=== PATIENT | male | born 1940 | race Caucasian/White ===

== ENCOUNTER 2024-08-23 08:40 | Inpatient (IN) | payer MEDICARE, BC, SELFPAY ==
[2024-08-23] VITALS (67 sets, daily range): BP systolic 103–168; BP diastolic 56–122; BMI 30.1; BMI 29.4
--- NOTE | 2024-08-23 07:25 | ED.CVA ---
History of Present Illness
General
Chief Complaint: CVA/TIA Symptoms
Source: patient and ambulance crew
Exam Limitations: none
Time Seen by Provider: 08/23/24 07:22
Nursing documentation reviewed up to this point in time: agreed with
Onset of Stroke Symptoms
Onset of symptoms known: No
Time pt last seen normal is known: No
History of Present Illness
History of Present Illness:
84-year-old male prehospital stroke alert woke up at 5 AM spouse noted slurred speech and right facial weakness he got up through the night to urinate he does not know what time states he felt fine at that time, apparently his had a week of trouble
swallowing but no speech or facial weakness
Past History
Past History
ED Past Medical History: HTN, GA (4 years ago s/p balloon) and Other (HLD, arthritis, scoliosis, pre-DM)
Patient has exhibited threatening behavior?: No
Social History
Tobacco: Non-smoker
Alcohol: None
Drug: None
Personal:
Living: with family
Employment: Employed
Family History
Family History: Other (FH of leg pain in mother and sister)
Review of Systems
Review of Systems
All Other Systems: Not applicable
EENT: Reports other (Trouble swallowing)
Neurological: Reports weakness and other (Slurred speech trouble swallowing)
Phy Exam
Physical Exam
Physical Exam:
Physical Exam
General: no apparent distress, not acutely ill
Neck: No tongue bite
Heart: Irregular
Lungs: no acute respiratory distress. clear bilaterally
Abdomen: normal bowel sounds. not tender. no CVAT
Neuro: alert and oriented. Expressive aphasia right facial weakness mild right upper extremity with
Skin: no rash
Psychiatric: well kept. interactive and cooperative
Extremities: no edema.
Course
Orders/Labs/Results
Orders:
Orders
08/23/24 Breakfast
NPO
Allow oral meds: No
Allow clear liquids: No
08/23/24 07:22
Electrocardiogram (*1) Urgent
Reason for Study: TIA/Stroke
CT BRAIN PERF STROKE ALERT Urgent
Comment:
Reason For Exam: Aphasia facial palsy right arm weakness
CT HEAD STROKE ALERT W/o Cont Urgent
Comment:
Reason For Exam: Aphasia facial palsy right arm
CT HEAD/NECK ANG STROKE ALERT Urgent
Comment:
Reason For Exam: Aphasia facial palsy right arm weakness
Bedside Glucose- Treatment ONCE
Cardiac Monitoring- Treatment ONCE
08/23/24 07:23
EKG- Treatment ONCE
08/23/24 07:26
Complete Blood Count/With Diff Urgent
Erythrocyte Sed Rate Urgent
PTT Urgent
Prothrombin Time Urgent
08/23/24 07:50
Comprehensive Metabolic Panel Stat
08/23/24 08:08
Tenecteplase [Tnkase] 24 mg Syringe [Syringe Non-Pump] 0 ml IV NOW
Provider explained risk/benefits to patient &/or caregiver?: Yes
Blood pressure: 140/79
Tenecteplase [Tnkase] 24 mg Syringe [Syringe Non-Pump] 0 ml IV NOW
Provider explained risk/benefits to patient &/or caregiver?: Yes
Blood pressure: 140/79
08/23/24 08:13
Admit Patient As Directed
Co-Sign Provider:
Level of Care: Inpatient admission
Assign to:: ICU
Physician / Group: hospitalist-Jen
Diagnosis: CVA TNK
Reason for Hospitalization: ICU, TNK
Expected length of stay greater than two midnights?: Yes
ELOS- Estimated Length of Stay in days: 3
I certify the patient meets the requirements for IP care: Yes
Sequential Compression Device [Pneumatic Compression Sleeves] As Directed
Type: Knee high
08/23/24 08:14
PRN Pain Medication Management As Directed
May give lesser potent ordered pain med per pt: Yes
preference::
Protocol:: Medication orders for pain may be administered in a
manner that supports deferring to patient preference
when the pt is:
- Requesting an ordered lesser potent pain medication.
Least to most potent pain medications are defined
as: acetaminophen < NSAID < tramadol < opioids
(morphine, oxycodone, hydromorphone).
- Requesting a lesser dose of the same medication IF
ORDERED.
- Requesting a less intrusive route of administration
if both routes are prescribed by the provider (PO <
IV).
DX Deep Vein Thrombosis Video Routine
Abnormal Lab Results
08/23/24 08/23/24
: 07:30
MCHC 32.5 L g/dL
(33.0-37.0)
Absolute Monos (auto) 0.7 H 10^3/uL
(0.1-0.6)
Lymphocytes % 19.7 L %
(20.5-51.1)
POC Glucose 169 H mg/dl
(70-99)
08/23/24 07:26
Vital Signs
Initial and Last Documented VS:
Initial Vital Signs
BP
140/79
08/23/24 07:23
Last Documented Vital Signs
Temp Pulse Resp BP Pulse Ox
98.1 F 83 20 103/88 95
08/23/24 07:36 08/23/24 08:16 08/23/24 08:16 08/23/24 08:16 08/23/24 07:53
MDM/Problems Addressed
Differential Diagnosis Includes:
TIA CVA mass seizure with Ricco's paralysis, other neurologic issue as he is had trouble swallowing for a week
MDM/Problems Addressed:
Slurred speech
Chronic conditions affecting care:
Lipids blood pressure
Acute Exacerbation and/or Progression of Chronic Illness:
Lipids blood pressure
*Radiology
Radiology exam reviewed: radiology read reviewed
*Pulse Oximetry
Patient hypoxic: no
*EKG
Interpreted by ED Provider?: Yes
Interpretation: abnormal
Comparison EKG: no comparison EKG present
Rate: normal
Rhythm: a-fib
Ischemia: no ischemia
*Hostel Parent Interpretation
Rate: normal
Interpretation: normal
Heart Rate: 78
Rhythm: a-fib
*Critical Care Note
Total Time (30-74mins, 75-104mins- exclusive of procedures): 30
Update Note
Update Note:
8:10 AM update patient was sputtering symptoms of mixed aphasia, new-onset A-fib, rate controlled, not anticoagulated, no recent surgery, risk benefits reviewed with patient and spouse will proceed lytic therapy
ED Attending Note
-
Portions of this chart may have been created with voice recognition software.� Occasional wrong word or��sound alike� substitutions may have occurred due to the inherent limitations of voice recognition software.
Discharge Plan
Departure
Patient Disposition: Admit
Date of Disposition: 08/23/24
Time of Disposition: 08:23
Admit to: ICU
Presentation/result/management discussed w/ accepting MD/DO: Hospitalist
Patient with high blood pressure during this ER visit?: No
Condition: Fair
Discharge Problem:
Acute CVA (cerebrovascular accident), Atrial fibrillation
Prescriptions:
No Action
atorvastatin 40 MG tablet
40 mg PO HS
acetaminophen 325 MG tablet
650 mg PO Q4HPRN PRN (Reason: fever>100.4F, mild pain) 0RF
carvedilol 6.25 MG tablet
6.25 mg PO BID 0RF
pantoprazole 40 MG tablet,delayed release (DR/EC)
40 mg PO BID 0RF
furosemide 20 MG tablet
20 mg PO DAILY 0RF
cholecalciferol (vitamin D3) 2,000 UNITS tablet
2,000 units PO DAILY 0RF
docusate sodium 100 MG capsule
100 mg PO BID Qty: 60 0RF
lisinopril 2.5 MG tablet
2.5 mg PO DAILY Qty: 30 0RF
ferrous sulfate [Iron (ferrous sulfate)] 325 MG tablet
325 mg PO DAILY Qty: 60 0RF
Interventions
Interventions:
*Risk Screen - Suicide Last Done: 08/23/24 07:41
*General Assessment Last Done: 08/23/24 07:40
*Neglect/Abuse Screening Last Done: 08/23/24 07:41
*ED- Fall Risk Assessment Last Done: 08/23/24 07:41
*ED COVID-19 Vaccine History Last Done: 08/23/24 07:41
ED- Cardiac Assessment Last Done: 08/23/24 08:05
ED- Neurological Assessment Last Done: 08/23/24 07:51
ED- Pulmonary Assessment Last Done: 08/23/24 07:53
ED Swallowing Screen Last Done: 08/23/24 08:05
Discharge Date and Time
Print Language: MALAY
[2024-08-23 07:36] LABS: Glucose - Point of Care 169 mg/dl (70-99)
[2024-08-23 07:52] LABS: Hematocrit 45.6 % (39.0-52.0); Hemoglobin 14.8 g/dL (13.0-18.0); Mean Corp Hgb Conc. 32.5 g/dL (33.0-37.0); Mean Corpuscular Volume 93.4 fL (80.0-94.0); Nucleated Red Blood Cells % 0 % (-); Platelet Count 207 10^3/uL (130-400); Red Cell Dist. Width 12.6 % (11.5-14.5)
--- NOTE | 2024-08-23 08:09 | CON.NEURO4 ---
Addendum entered and electronically signed by Ranjit Armstrong MD 08/23/24 11:21:
Total Critical Care Time= 40 minutes.
The neurological system is affected and the action required by me to prevent further deterioration or potential was control over the item listed first in the Impressions and Recommendations section of this note.
I was present and personally examined the patient. I discussed patient care with other professional health care providers.
Also discussed with family.
Addendum entered and electronically signed by Ranjit Armstrong MD 08/23/24 11:20:
Studies reviewed.
I have personally examined the patient. I reviewed and agree with the CNC MACHINIST's Note.
My addenda:
Awake, alert, interactive. No acute distress.
Speech with difficulty with repetitive phrases.
Follows 2-step requests w/o difficulty. No tremor.
Extra-ocular movements grossly intact.
Facial movements full and symmetric. Hearing intact to normal conversational volume.
Normal UE movements bilaterally.
Neck: full ROM.
Chest: no dyspnea
Heart: no JVD
Ext: (-) Clubbing, (-) Cyanosis, (-) Edema
IMPRESSIONS/RECOMMENDATIONS:
Abrupt onset of aphasia with right-sided facial droop in a patient with prior pulmonary emboli
And newly discovered atrial fibrillation
Patient had episodic aphasia during examination suggesting other TIA or stuttering stroke. Patient may have underlying cognitive disorder as well based on inability to correctly recall own medical history
Patient was provided with tenecteplase due to high risk for worsening stroke
Would suggest cardiology evaluation due to new onset atrial fibrillation and concern regarding initiation of anticoagulation 24 hours after tenecteplase provision
Consider GI evaluation or curbside due to prior history of hemorrhage
Patient will likely require GI evaluation also due to self stated dysphagia beginning approximately 2 weeks ago
Check acetylcholine receptor antibodies due to dysphagia
Permissive hypertension up to 220/120
Check blood work for potential metabolic abnormalities producing cognitive decline
D/W patient / family / nursing
All questions answered.
Will continue to follow patient.
Original Note:
Documented by User: Dalia Ornelas NP 08/23/24 10:52
Consultation - Neurology 4
-
CONSULTING PHYSICIAN: Ranjit Armstrong MD
REFERRING PHYSICIAN: ER/Dr. Corcoran
DICTATED BY: KURT Chappell
DATE/TIME OF REQUEST: 08/23/24
DATE/TIME OF CONSULTATION: 08/23/24
Reason for Consultation: Stroke Alert
History of Present Illness:
This is an 84-year-old right-handed male who has presented to the hospital with report of dysarthria and right facial drooping. In 2021, the patient experienced abdominal pain and was subsequently found to have a right kidney hematoma in addition
to a DVT in his LLE and bilateral upper extremities; VQ scan was high probability for pulmonary emboli. IVC filter was placed at that time due to the hematoma, but he proceeded to have a GI bleed requiring blood transfusion following the procedure.
He underwent a hematology evaluation for hypercoagulability which was unremarkable. He has continued on aspirin 81mg every other day since that time.
Patient and his report that he went to bed last night (08/22/24) around 2130 in his usual state. He woke up around midnight to use the bathroom and reports being at his baseline but having a coughing fit. He proceeded to go back to bed until
0500. At 0500 his noticed that his speech sounded slurred and his right face appeared droopy. On arrival in the ER, CT head, CTA head/neck, and CT perfusion were obtained and are negative for any acute abnormalities. NIHSS is 2 for mild
dysarthria and right facial drooping. They report that his speech has improved significantly. He is newly found to be in Afib on cardiac monitoring. He reports having chest discomfort for the past week. He has had a chronic cough and urinary
urgency/incontinence for years. He also notes two weeks of swallowing difficulty, which his states he had not mentioned previously. he uses a cane for ambulation and endorses chronic balance issues. He denies any headache, dizziness, vision
changes, numbness, and weakness.
Past Medical History: HTN, HLD, CAD, NSTEMI, CKD, pulmonary embolism, DVT, upper GI bleed from duodenal ulcer, right renal capsular hematoma, spinal stenosis, arthritis
Surgical History: RCA PTCA, IVC filter, cardiac catheterization, tibia repair
Family History: Reviewed and noncontributory.
Social History: Occasional alcohol. Denies tobacco and illicit drug use.
Allergies: No known allergies.
Home Medications: See below.
Review of Symptoms:
Patient denies any fever, headache, chest pain, shortness of breath, GI or symptoms.
�Per the HPI.�All systems are reviewed negative except above.
Physical Exam:
The patient is afebrile, abdomen is nondistended, breathing is unlabored, skin is warm and dry, no edema.
NIH Stroke Scale:
I performed the NIH stroke scale on the patient on 08/23/24 at 0800. The patient scored 2 points on the NIH stroke scale assessment, which were assigned as follows: See below.
Neurologic Examination:
The patient is awake, alert and oriented x 3. Poor historian. Unable to state next holiday. He is able to follow commands and answer questions appropriately. There is no aphasia. There is mild dysarthria. On cranial nerve assessment, pupils are 3
mm bilateral, round and reactive to light and accommodation. Visual ulloa are full. Extraocular movements are intact. Facial sensations are intact and bilaterally symmetrical, there is right facial drooping. Hearing is intact bilaterally to
normal conversation volume. Tongue palate and uvula are midline. Sternocleidomastoid strengths are full bilaterally. Motor strengths are 5/5 bilateral upper and lower extremities on medical research [place] scale. There is no drift or involuntary
movement noted. There was no extinction noted on double simultaneous stimulation. Coordination is intact by finger to nose bilaterally.
Lab Results: See below.
Neuro Imaging:
1. CT Head 08/23/24: No acute intracranial abnormality. ASPECT score: 10.
2. CTA Head/Neck 08/23/24: No large vessel occlusions, dissections, or aneurysms appreciated. 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
Mild atherosclerotic disease within both carotid bulbs and proximal ICAs causing less than 50% luminal narrowing bilaterally.
3. CT Perfusion 08/23/24: CBF 0.
Differentials for the patient's presentation include:
1. Likely an acute left hemisphere or brainstem ischemic stroke producing patient's symptoms.
2. History of DVTs, pulmonary embolism, IVC filter placement.
3. Newly observed Afib on telemetry monitoring.
4. Subacute dysphagia; need to rule out myasthenia gravis.
5. History of severe GI bleeding from a gastric ulcer.
Patient has the following risk factors for their symptoms: Hx DVT, PE, HTN, HLD, age
IV Tenecteplase/IAT candidacy: He is a candidate for TNK, not IAT due to no LVO.
Recommendations:
� administer IV Tenecteplase (TNK) per protocol urgently while keeping patient's blood pressure to a goal of systolic less than 185 and diastolic less than 110 mmHg during infusion of TNK
� place the patient in medical ICU
� goal blood pressure over the next 24 hours would be less than 180/105 mmHg
� check MRI of the brain within 22-32 hours of TNK without contrast for localization of the stroke
� hold all antiplatelets, OAC meds, DOAC meds, heparinoids for next 24 hours
will need input from Cardiology and GI if patient is safe to be initiated on anticoagulation for Afib due to extensive medical complications in 2021
� check lipid panel and hemoglobin A1c
� increase home atorvastatin from 40mg to 80 mg at bedtime when patient is able to take PO
� goal blood glucose levels for patient would be less than 180 mg/dL
� Speech, PT, OT evaluations needed
� Physiatry consultation warranted
� DVT prophylaxis with sequential compression devices over next 24 hours, can be started on Enoxaparin subcutaneous for DVT prophylaxis beginning 24 hours after TNK provision.
� medical educational materials will be provided
acetylcholine receptor and MUSK antibodies pending
We will follow.
Discussed patient care with: Dr. Armstrong, the patient, patient's spouse
Vital Signs and Labs
-
Vital Signs and Labs:
Vital Signs
Temp Pulse Resp BP Pulse Ox
98.1 F 74 24 140/79 95
08/23/24 07:36 08/23/24 07:45 08/23/24 07:45 08/23/24 07:36 08/23/24 07:53
Lab Results
08/23/24 07:26
Sodium Cancelled 08/23/24 07:26
Potassium Cancelled 08/23/24 07:26
BUN Cancelled 08/23/24 07:26
Glucose Cancelled 08/23/24 07:26
Calcium Cancelled 08/23/24 07:26
Medications
-
Home Medications
�Medication �Instructions �Recorded
atorvastatin 40 mg tablet 40 mg PO HS 05/29/21
acetaminophen 325 mg tablet 650 mg (2 x 325 mg) PO Q4HPRN PRN 06/30/21
fever>100.4F, mild pain
carvedilol 6.25 mg tablet 6.25 mg PO BID 06/30/21
cholecalciferol (vitamin D3) 50 2,000 units PO DAILY 06/30/21
mcg (2,000 unit) tablet
docusate sodium 100 mg capsule 100 mg PO BID #60 caps 06/30/21
ferrous sulfate 325 mg (65 mg 325 mg PO DAILY #60 tabs 06/30/21
iron) tablet (Iron (ferrous
sulfate))
furosemide 20 mg tablet 20 mg PO DAILY 06/30/21
lisinopril 2.5 mg tablet 2.5 mg PO DAILY #30 tabs 06/30/21
pantoprazole 40 mg tablet,delayed 40 mg PO BID 06/30/21
release
NIH Stroke Score
Subsequent NIH Scale
Date of Subsequent NIH Scale: 08/23/24
Time of Subsequent NIH Scale: 08:00
NIH Stroke Score
Level of Consciousness: 0 - Alert
LOC Questions: 0-Answers both correctly
LOC Commands: 0-Performs both correctly
Best Horizontal Gaze: 0-Normal
Visual Ulloa: 0=Normal, no visual loss
Facial Palsy: 1=Minor paralysis
Motor - Right Arm: 0=No drift 10 seconds
Motor - Left Arm: 0=No drift 10 seconds
Motor - Right Le-No drift 5 seconds
Motor - Left Le-No drift 5 seconds
Limb Ataxia: 0-Absent
Sensation: 0-Normal
Best Language: 0-No aphasia
Dysarthria: 1-Mild slurring
Extinction and Inattention: 0-No abnormality
NIH Total Score:: 2
Modified [place] (mRS) Score
Modified [place] Scale (mRS): No significant disability. Able to carry out usual activities.
Score: 1
Alteplase Contraindication
Inclusion and Exclusion criteria reviewed: Yes

Documented by User: Ranjit Armstrong MD 08/23/24 11:11
NIH Stroke Score
NIH Stroke Score
NIH Total Score:: 2
Modified [place] (mRS) Score
Score: 1
[2024-08-23] MEDS: TNKASE 4.8 MG IV (08:16)
[2024-08-23 08:21] LABS: INR 0.96; PT 13.3 Sec (11.4-14.6)
[2024-08-23 08:22] LABS: APTT 24.4 Sec (23.4-35.0)
--- NOTE | 2024-08-23 08:22 | HPS.HSE ---
Addendum entered and electronically signed by Calista Li MD 08/23/24 14:51:
I personally performed a history and physical exam of the patient and discussed management with the resident. I reviewed the resident's note and agree with the documented findings and plan of care HPI/CC.
GENERAL: well developed, well nourished, male in no apparent distress
HEENT: NC/AT
HEART: regular rate and rhythm, +S1, +S2
LUNGS : clear to auscultation bilaterally
ABDOM: soft, nontender, nondistended, + bowel sounds
EXT: no cyanosis, clubbing, or edema
NEUROLOGIC: small right facial droop--slurred speech, otherwise nonfocal neuro exam
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
due to normal WBC)--head CT/CTA in ED no acute issues--bedrest for 24 hours followed by PT/OT/antiplatelet agents, etc--await MRI--consult neuro--failed swallow eval at bedside--await speech--check lipid panel and likely needs statin therapy
back--Pending Ferritin, Folate, TSH, Vitamin B12
New Onset Atrial Fibrillation--unclear if paroxysmal or more permanent--pt does not feel afib--rate controlled--s/p TNK--no AC for at least 24 hours--asked for records from cards--Requested medical records from [facility] ([facility])--consult cards--check ECHO
Type 2 Diabetes Mellitus--presumed diet controlled--Patient not currently taking medication therapy--A1c 7.1 on admission--accuchecks when able--possible need for meds
Chronic Kidney Disease Stage 3a--Creatinine 1.4 today, appears to be at baseline
Coronary Artery Disease s/p OR--Unclear if patient has had a coronary artery stent or not based upon medical records available--Requested records from [facility]
Hyperkalemia--Potassium 5.3 on admission--Will trend BMP
Hypocalcemia-Calcium 8.2 on admission
hx DVT/PE--s/p IVC filter--no AC due to GIB?--check US bilateral LE
DVT proph--SCDs
code status--DNR
Original Note:
Family Physician
-
Family Physician:
Chief Complaint
-
Slurred Speech
History of Present Illness
This is an 84 y/o male with pmhx of DVT and pulmonary embolism, hypertension, CKD stage 3 and coronary artery disease who presented to the ED on 08/23/2024 after he awoke at 5AM with slurred speech, right sided facial weakness. He has also had
difficulty swallowing for the last week. His was present at the bedside and helping to contribute to the HPI
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 They enjoyed breakfast together during which time she did not notice anything abnormal. However, when he was
about to leave for work, she noticed a sudden onset of slurred speech that had not previously been present, as well as difficulty with rising out of his chair. He did not have any difficulty with walking after he was able to get out of his chair,
and was able to walk to his car independently though he did have some shortness of breath. He initially wanted to go to work as they are short staffed, but she convinced him to stay while she called 911 due to her concern for a stroke. He arrived to
the hospital via ambulance, and received TNK before I arrived.
His reports that currently his speech is much better than where it was this morning. He states he is feeling very well currently. He denied any confusion, weakness, dizziness, changes in his vision or new loss of sensation. He does, however,
have chronic neuropathy in his feet. He also denied shortness of breath, chest pain, nausea, vomiting, chills. He does report chronic runny nose that has been present for month which he attributes to postnasal drip, as well as an associated cough
productive for yellow phlegm which has also been ongoing for many months. He has not had any increase in the amount of phlegm he produces, nor changes in the quality of the phlegm.
Patient denied any personal history of elevated BP/HTN. His states he was prescribed lisinopril for 'a kidney issue' years ago, and he does not take this. He also has not taken atorvastatin in a few weeks due to leg cramping, and takes garlic
supplements instead.
Medical History
Past Medical History
Past Medical History: Reports CAD, OR and Other (CKD Stage 3, Hx Subcapsular hematoma of the right kidney, Hx of DVT and Pulmonary Embolism, Type 2 Diabetes without insulin dependence); Denies Arrhythmia or HTN (Patient and denied)
Past Surgical History: Reports Other (Cataracts)
Social History
Tobacco: Non-smoker
Alcohol: None
Drug: None
Personal:
Living: With Family
Employment: Employed
Family History
Family History: Other (Patient denied any family history of cancer, diabetes or heart attack)
Allergies / Home Medications
Allergies reflects when Allergies were last updated in [employer].
Home Medications with original date entered in [employer]
Allergy/Medication List:
Allergies
Allergy/AdvReac Type Severity Reaction Status Date / Time
No Known Allergies Allergy Verified 08/23/24 07:35
Home Medications
atorvastatin 40 mg tablet 40 mg PO HS 05/29/21
aspirin 81 mg tablet,delayed release 81 mg PO Q48H 08/23/24
cholecalciferol (vitamin D3) 125 mcg (5,000 unit) tablet (Vitamin D3) 125 mcg PO DAILY 08/23/24
garlic 300 mg capsule 300 mg PO DAILY 08/23/24
pantoprazole 40 mg tablet,delayed release 40 mg PO DAILY 08/23/24
tamsulosin 0.4 mg capsule (Flomax) 0.8 mg PO DAILY 08/23/24
Review of Systems
-
History Source: Patient and Family
A 12 point ROS was completed and negative except as noted: Yes
Constitutional: Denies Fever, Fatigue or Chills
EENT: Reports See HPI
Respiratory: Reports Cough and Trouble Breathing (Per , during episode of slurred speech, not currently present); Denies Hemoptysis
Cardiac: Denies Chest Pain or Palpitations
Abdomen/GI: Denies Abdominal Pain, Nausea, Vomiting, Diarrhea or Constipated
: Reports Incontinence (Per , chronic)
Musculoskeletal: Reports Edema (Bilateral lower extremities, chronic); Denies Joint Pain or Muscle Pain
Skin: Denies Rash
Neurological: Reports Numbness (Neuropathy of feet, bilateral, chronic); Denies Dizzy, Headache or Weakness
Hematologic/Lymphatic: Denies Bleeding
Psych: Reports Calm
Physical Exam
Vital Signs
Vital Signs
Temp Pulse Resp BP Pulse Ox
98.1 F 83 20 103/88 95
08/23/24 07:36 08/23/24 08:16 08/23/24 08:16 08/23/24 08:16 08/23/24 07:53
Physical Exam
General: Well Developed, Well Nourished, No Apparent Distress, Comfortable and Conversant
HEENT: NormoCephalic, Anicteric, Atraumatic, Nose Appears Normal and Ears Appear Normal
Respiratory: Clear
Cardiac: S1/S2 and Irregular Rhythm
GI: Soft, Non Tender and Normal Bowel Sounds
Genito-urinary: Deferred by me
Musculoskeletal: Edema, Left Lower Extremity (Worse than right) and Edema, Right Lower Extremity
Skin: Warm and Dry
Neuro: Awake, Alert, No Motor Deficits (Strength 4/5 in all extremities) and Facial Droop (Right sided facial droop noted near corner of the mouth, patient is able to smile without significant facial droop)
Psych: Calm
Laboratory Results
-
08/23/24 07:26
Laboratory Results
Total Bilirubin Cancelled 08/23/24 07:26
AST Cancelled 08/23/24 07:26
ALT Cancelled 08/23/24 07:26
Alkaline Phosphatase Cancelled 08/23/24 07:26
Impression/Plan
-
IMPRESSION:
This is an 84 y/o male with pmhx of DVT and pulmonary embolism, hypertension, CKD stage 3 and coronary artery disease who presented to the ED on 08/23/2024 after he awoke at 5AM with slurred speech, right sided facial weakness, status post TNK.
PLAN:
Slurred Speech with Right Sided Facial Droop in patient with history of DVT and Pulmonary Embolism
-DD: Stroke possibly due to clot from new onset afib, Vitamin Deficiency, Malignancy, Infection (Unlikely due to normal WBC)
-CT Head in the ED showed no acute abnormalities, no hemorrhage, no focal areas suggestive of recent infarction. CTA Head/Neck showed no large vessel occlusions, dissections, or aneurysms. 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
artery
-Patient is status post TNK infusion, and is being admitted to the ICU
-DVT prophylaxis with SCDs for 24 hours post TNK, at which point he can start dual antiplatelet therapy with aspirin and Plavix (Start approximately 9AM on 08/24)
-Consulted neurology, accountant systems and physiatry. Will appreciate their insight into his case.
-Ordered MRI of the head
-Pending Ferritin, Folate, TSH, Vitamin B12
-Ordered PT/OT to begin 24 hours after TNK administration (Approximately 9AM on 08/24)
-Ordered swallow test. If he does not pass, Speech therapy will be notified
-Patient will require Statin therapy once he can take PO medications
Diabetes Mellitus
-Patient not currently taking medication therapy
-A1c 7.1 on admission
-Will monitor blood glucose level
-Will defer conversation about beginning PO medication until after Slurred speech/likely stroke has resolved
New Onset Atrial Fibrillation
-Patient not currently tachycardic, not currently on anticoagulation therapy due to history of GI bleed
-Requested medical records from [facility] ([facility])
-Consulted Cardiology. Will appreciate their insight into his case
-IF indicated, Patient can begin anticoagulation only after 9AM on 08/24
Chronic Kidney Disease Stage 3a
-Creatinine 1.4 today, appears to be at baseline
-Will continue to monitor Creatinine
Coronary Artery Disease s/p OR
-Unclear if patient has had a coronary artery stent or not based upon medical records available
-Requested records from [facility]
Hyperkalemia
-Potassium 5.3 on admission
-Will trend BMP
Hypocalcemia
-Calcemia 8.2 on admission
-Will trend BMP
[2024-08-23 09:03] LABS: ALT (SGPT) 21 U/L (0-50); AST (SGOT) 19 U/L (17-59); Albumin 3.6 g/dl (3.5-5.0); Alkaline Phosphatase 72 U/L (38-126); Blood Urea Nitrogen 30 mg/dl (9-20); Calcium 8.2 mg/dl (8.4-10.2); Carbon Dioxide 26 mmol/L (22-30); Chloride 111 mmol/L (98-107); Estimated Creatinine Clearance 44 ml/min; Glucose 130 mg/dl (70-99); HDL Cholesterol 24 mg/dl; LDL Cholesterol, Calculated 93 mg/dl; Potassium 4.4 mmol/L (3.5-5.1); Sodium 140 mmol/L (135-145); Total Protein 6.8 g/dl (6.3-8.2); Very Low Density Lipoprotein 31 mg/dl (0-30); eGFR 48.95
--- NOTE | 2024-08-23 09:31 | CM ---
Reviewed the chart notes and spoke with the patient, spouse and daughter at the bedside. The patient admitted for CVA. The patient resides with his spouse in a two story home with no steps to enter. The patient has a cane, shower chair, and
shower grab bar. The patient has had VN in the past, agency unknown. The patient has been to [facility] in the past. The patient confirmed pharmacy of choice is [facility]. CM continues to be available to patient/family and is monitoring
medical plan for needs at discharge.
Plan: Discharge plans will depend on the patient's progress.
[2024-08-23 10:08] LABS: Glycohemoglobin (HgbA1c) 7.1 % (4.0-5.6)
[2024-08-23 10:37] LABS: Ferritin 172.0 ng/ml (17.9-464.0)
[2024-08-23 11:37] LABS: Vitamin B12 520 pg/ml (239-931)
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
[2024-08-23 11:56] LABS: Blood Urea Nitrogen 34 mg/dl (9-20); Calcium 9.1 mg/dl (8.4-10.2); Carbon Dioxide 27 mmol/L (22-30); Chloride 109 mmol/L (98-107); Estimated Creatinine Clearance 39 ml/min; Glucose 118 mg/dl (70-99); Magnesium 2.3 mg/dl (1.6-2.3); Potassium 5.3 mmol/L (3.5-5.1); Sodium 137 mmol/L (135-145); eGFR 48.95
--- NOTE | 2024-08-23 12:20 | PTCARENOTE ---
Per family and also ED RN, pt cannot read or write.
--- NOTE | 2024-08-23 13:02 | PTOTSP ---
Speech Therapy Evaluation:
Pt presents with grossly functional oral phase but signs concerning for pharyngeal dysphagia with throat clearing in 3/3 trials of consecutive straw sips. No overt s/sx of aspiration with single cup/straw sips, puree, or regular solids. Pt with
acute risk factors for dysphagia including c/f CVA. WBC WNL, pt afebrile, on room air, CXR clear, and pt without hx of dysphagia.
Recommend:
1. Regular solids and thin liquids via SINGLE SIPS
2. Meds as tolerated
3. General aspiration precautions
4. EARTH SCIENCE LABORATORY TECHNICIAN to follow to monitor tolerance of diet and determine if pt would benefit from instrumental assessment. Unable to complete today given TNK administered at 0815am.
--- NOTE | 2024-08-23 13:04 | CON.INTV ---
Addendum entered and electronically signed by Angeles Mcneil MD 08/24/24 12:25:
- Patient transferred out of ICU, 08/24
- Nuisance Wildlife Trapper service will sign off, please call as needed
Original Note:
Consultation
Consultation Request
Date/Time Consultation Requested: 08/23/2024
Date/Time Consultation Performed: 08/23/2024
Medical History
-
Chief Complaint: Facial droop, aphasia
History of Present Illness:
Patient is a 84-year-old gentleman with a known history of DVT, PE and massive GI bleed who presented to the hospital with slurred speech and right-sided facial weakness. Patient was evaluated by neurology service. Initial CT and CTA was negative
for any large vessel occlusion. Patient received TNK for concern of underlying cerebrovascular accident. Postprocedure he was admitted to the ICU and food science technician consultation was requested for further input. Reportedly his speech subsequently
improved.
Past Medical History
Past Medical History: Reports CAD, PA and Other (CKD Stage 3, Hx Subcapsular hematoma of the right kidney, Hx of DVT and Pulmonary Embolism, Type 2 Diabetes without insulin dependence); Denies Arrhythmia or HTN (Patient and denied)
Past Surgical History: Reports Other (Cataracts)
Social History
Tobacco: Non-smoker
Alcohol: None
Drug: None
Personal:
Living: With Family
Employment: Employed
Family History
Family History: Other (Patient denied any family history of cancer, diabetes or heart attack)
Allergies / Home Medications
Allergies / Home Medications
Allergies
Allergy/AdvReac Type Severity Reaction Status Date / Time
No Known Allergies Allergy Verified 08/23/24 07:35
Home Medications
�Medication �Instructions �Recorded �Confirmed �Last Taken �Type
atorvastatin 40 mg tablet 40 mg PO HS 05/29/21 08/23/24 08/09/24 21:00 History
aspirin 81 mg tablet,delayed 81 mg PO Q48H 08/23/24 08/23/24 08/22/24 05:30 History
release
cholecalciferol (vitamin D3) 125 125 mcg PO DAILY 08/23/24 08/23/24 08/22/24 05:30 History
mcg (5,000 unit) tablet (Vitamin
D3)
garlic 300 mg capsule 300 mg PO DAILY 08/23/24 08/23/24 08/23/24 History
pantoprazole 40 mg tablet,delayed 40 mg PO DAILY 08/23/24 08/23/24 08/21/24 05:30 History
release
tamsulosin 0.4 mg capsule (Flomax) 0.8 mg PO DAILY 08/23/24 08/23/24 08/21/24 21:00 History
Review of Systems
-
Hematologic/Lymphatic: Other (All 14 systems reviewed and negative except as stated above in the history of present illness.)
Vitals / Labs / Diagnostic Testing
Vital Signs
Temp Pulse Resp BP Pulse Ox
98.1 F 70 22 151/70 97
08/23/24 11:28 08/23/24 12:16 08/23/24 12:16 08/23/24 12:16 08/23/24 09:00
Lab Data
08/23/24 07:26
08/23/24 10:59
Laboratory Results
08/23/24
07:26
PT 13.3
INR 0.96
APTT 24.4
Diagnostic Testing:
Physical Exam
-
HEENT: Normocephalic
Cardiovascular: S1/S2
Respiratory: Clear
GI: Soft and Non Distended
Neurology: Awake
Skin: Warm
General: Comfortable
Assessment
-
#1. Aphasia with facial droop, concerning for acute CVA vs TIA
- S/p TNK, symptoms completely resolved
- Monitor closely in the ICU
- Neurology service on case
- EKG and cardiac cath technologist reviewed, appears to be normal sinus rhythm with frequent atrial premature complexes. Await cardiology input
- Echocardiogram, MRI pending
- Neurochecks per protocol
- Avoid antiplatelets or anticoagulation for the next hour
#2. H/o Duodenal ulcers. 2021.
- EGD and clip placement noted in 2021.
- At risk of bleeding, received TNK earlier today
- Resume Protonix PO
- Hold home dose of ASA considering TNK given today
#3. H/o DVT & PE.
- Abnormal VQ scan in 2021, s/p IVC filter placement (unable to anticoagulate due to spontaneous right renal hematoma & massive GI bleed)
- LE Doppler US, positive for acute occlusive DVT in the left femoral and popliteal veins (2021)
- Patient reports having been treated with anticoagulants in the past and was subsequently switched to aspirin 81 mg daily
Other medical diagnoses:
- DM
- CKD stage III
Critical Care time 58 mins -- The patient is admitted for acute critical illness for the treatment of vital organ failure and/or prevention of further life-threatening conditions. Total care includes time spent in review of history, physical exam,
medications, hemodynamic/ventilator parameters, laboratory data, imaging and discussion with house staff, pharmacy, respiratory therapy, staff field engineer, and nursing.
Data:
CXR 08/2024: Low lung volumes.
Pulmonary vascularity at least top normal.
CT Head, CTA Head & Neck, 08/2024: Without acute findings.
ECHO 06/2021: Normal left ventricular size and systolic function.
LV ejection fraction is 60-65% by Cocnepcion's method of discs.
Mild concentric left ventricular hypertrophy.
Trace mitral regurgitation.
Mild aortic regurgitation.
Mild tricuspid regurgitation.
Estimated pulmonary artery pressure of 30-35 mmHg assuming a right atrial pressure of 3 mmHg.
Mild pulmonic regurgitation.
No pericardial effusion.
Dilated aortic root.
Sinuses at 4.6 cm, S-T Junction is 3.6 cm, Ascending aorta is 4.1 cm.
VQ scan 06/2021: High probability of subsegmental PE
Acute DVT, LE. 06/2021
--- NOTE | 2024-08-23 13:35 | CARDSERVLU ---
Echocardiogram with Lumason completed after protocol screening completed. Allergies verified.
Patent IV site: _R HAND___
IV site flushed with 0.9% NaCl pre and post administration.
Diluted bolus method utilized to enhance visualization of ventricular bailey.
Total volume given: __6 mL
Patient tolerated all procedures well without complications.
--- NOTE | 2024-08-23 13:38 | PTCARENOTE ---
Pt was cleared by speech for regular diet thin liquids. Pt and updated. Lunch ordered by .
[2024-08-23] MEDS: PROTONIX 40 MG PO (14:18)
[2024-08-23 14:35] LABS: Folate 14.8 ng/ml (2.76-20)
--- NOTE | 2024-08-23 15:45 | CON.CAR ---
Addendum entered and electronically signed by Gonzales Martinez MD 08/23/24 18:16:
I saw and examined the patient.
The Front Desk Specialist's note was reviewed and I agree with the note.
Comment:
GEN: No distress, awake, Ox3
HEENT: supple, anicteric, mmm
LUNGS: CTA, no wheezes/rales
CV: Reg with ectopy, S1/S2, 1/6 syst LSB, no gallop
ABD: soft, BS+, NT/ND
EXT: No edema
NEURO: Gross non-focal
SKIN: No rash
PLan:
84-year-old male with past medical history of coronary artery disease, diabetes, hypertension, duodenal ulcer, DVT/PE status post IVC filter, leg hematoma presents with a new stroke today. Patient was weak and had marked facial droop drooling and
slurred speech. He was given TNK and admitted to the ICU. Telemetry monitoring revealed frequent PACs and possible atrial fibrillation. He follows with [facility] cardiology.
I reviewed all of his telemetry strips. There was 1 very brief strip with suggest possible A-fib with the majority of the strips are sinus with premature beats. Will review with electrophysiology.
Continue telemetry monitoring. Continue post TN K management.
Continue atorvastatin and antiplatelet therapy when okay with neurology.
Check echocardiogram.
If he does have significant A-fib would recommend full anticoagulation, however he has had significant bleeding in the past with GI bleeding and a leg hematoma. Will continue to follow.
Original Note:
Consultation
Consultation Request
Date/Time Consultation Performed: 08/23/24
Requesting Provider: Dr. Li
Performing Provider: Muriel Mcneil PA-C for Dr. Martinez
Reason for Consultation: afib, CVA
Medical History
-
Chief Complaint: R facial droop, slurred speech
History of Present Illness:
Patient is an 84-year-old male with past medical history of CAD status post NSTEMI resulting in RCA PTCA in 2018, type 2 diabetes, hypertension, history of GI bleeding/duodenal ulcer 06/2021 with subsequent development of DVT/PE status post IVC
filter, leg hematoma on OAC, chronic right bundle branch block, who presents to [facility] for evaluation of stroke symptoms. This morning around 5 AM he states he got up and was walking to his car when he noted weakness. His reports
that he was 'white as a sheet' and slurred speech and a right facial droop with some drooling. EMS was called and he presented to the ER as a stroke alert. He was given TNK and admitted to the ICU. He reports feeling essentially back to baseline
at present. Cardiology consulted to evaluate patient for possible A-fib noted on telemetry. Patient denies chest pain, shortness of breath, palpitations, lightheadedness or dizziness. He denies cardiac arrhythmias to his knowledge. He is
followed by Dr. Ramirez at [facility] cardiology. He is currently maintained on aspirin 81 mg every other day.
PMH:
CAD status post NSTEMI RCA PCTA with residual circ disease 2017
Type 2 diabetes
CKD
Hypertension
Hyperlipidemia
History of GI bleeding/duodenal ulcer 06/2021
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
History of leg hematoma on anticoagulation
Chronic right bundle branch block
GERD
BPH
Past Medical History
Past Medical History: Other (in HPI)
Social History
Tobacco: Non-Smoker
Alcohol: None
Personal:
Living: With Family
Employment: Employed
Family History
Family History: Reviewed & Not Pertinent
Allergies / Home Medications
Allergy/AdvReac Type Severity Reaction Status Date / Time
No Known Allergies Allergy Verified 08/23/24 07:35
�Medication �Instructions �Recorded �Confirmed �Type
atorvastatin 40 mg tablet 40 mg PO HS High Cholesterol 05/29/21 08/23/24 History
aspirin 81 mg tablet,delayed 81 mg PO Q48H Blood Clot 08/23/24 08/23/24 History
release Prevention/Tx
cholecalciferol (vitamin D3) 125 125 mcg PO DAILY Supplement 08/23/24 08/23/24 History
mcg (5,000 unit) tablet (Vitamin
D3)
garlic 300 mg capsule 300 mg PO DAILY Supplement 08/23/24 08/23/24 History
pantoprazole 40 mg tablet,delayed 40 mg PO DAILY Gastrointestinal 08/23/24 08/23/24 History
release Issue
tamsulosin 0.4 mg capsule (Flomax) 0.8 mg PO DAILY Urinary Issue 08/23/24 08/23/24 History
Review of Systems
-
History Source: Patient and Family
All other systems: Negative unless noted
Physical Exam
Vital Signs
Temp Pulse Resp BP Pulse Ox
98.1 F 72 27 150/75 94
08/23/24 11:28 08/23/24 15:16 08/23/24 15:16 08/23/24 15:16 08/23/24 12:35
Lab Results
08/23/24 07:26
08/23/24 10:59
Physical Exam
General: No Apparent Distress and Comfortable
HEENT: Normocephalic, Anicteric and Moist Mucous Membranes
Respiratory: Clear and Non Labored Respirations
Cardiac: S1/S2 and Regular Rhythm
GI: Soft, Non Tender and Non Distended
Musculoskeletal: No Clubbing, No Cyanosis and No Edema
Skin: Warm and Dry
Neuro: AO x 3
Impression / Plan
-
Primary Hvac Installation Technician: Dr. Ramirez
Assessment:
Presentation with slurred speech, R facial droop
Concern for acute CVA
s/p TNK 08/23/24
Frequent PACs
Cardiomyopathy, EF 45%
CAD status post NSTEMI RCA PCTA with residual circ disease 2017
Type 2 diabetes
CKD
Hypertension
Hyperlipidemia
History of GI bleeding/duodenal ulcer and kidney hematoma 06/2021
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
History of leg hematoma on anticoagulation
Chronic right bundle branch block
GERD
BPH
Echo 06/18/2021: EF 60 to 65%, mild concentric LVH, trace MR, mild AR, mild TR, PAP 30 to 35 mmHg, mild NE, no pericardial effusion, dilated aortic root
Echo 08/23/2024: EF 45%, mild concentric LVH, mild global hypokinesis, marked paradoxical septal motion, aortic sclerosis, mild AR, mild TR, PAP 38 mmHg, borderline dilated aortic root
Plan:
- Patient presented with symptoms concerning for acute stroke. Head CT without evidence of acute infarct. Brain MRI pending. Neurology following. In ICU status post TNK 08/23/2024. follow closely given prior bleeding events
- Cardiology consulted to evaluate for atrial arrhythmia. He has frequent ectopy with PACs, however no clear evidence of atrial fibrillation on my review of telemetry and EKGs. Will continue to follow while admitted
- Would plan for outpatient cardiac monitoring through primary director clinical pharmacology on discharge for 2 to 4 weeks
- Complicating matters, patient has history of bleeding both on anticoagulation, as well as off. He has history of a leg hematoma on anticoagulation in the past, and then in 2021 had GI bleeding from a duodenal ulcer and kidney hematoma while on
aspirin therapy per patient's (required 5 units of blood). He also has history of DVT/PE status post IVC filter. he is likely both elevated risk for bleeding as well as stroke. If is noted to have A-fib, will need ongoing discussions with
patient and family regarding risks versus benefits of anticoagulation. Was on aspirin 81 mg every 48 hours as an outpatient. hgb 14.8
- Echo with results as above, EF 45%, new compared to prior from 2021. Consider addition of beta-jaylyn when okay per neurology - he had been on coreg in past
- TSH WNL
- LDL 93. on lipitor as OP, consider increasing dose to 80mg QPM
- records from Dr. Ramirez obtained and reviewed including office visit 10/22/23.
- d/w nursing
- d/w patient and family at bedside
Data Reviewed
-
EKG: Tracing Personally Visualized and interpreted
CT Scan: Report Reviewed by me
Medical Tests (Nuc Med, Echo etc): Report Reviewed by me
Labs: Labs Reviewed by me
Old Records: Reviewed
--- NOTE | 2024-08-23 15:58 | PTCARENOTE ---
Pt reassessed, no complaints. Neuro checks continue. Deficits resolved. Pt ate 100% of lunch tray. Right wrist PIV redressed. Family at bedside, pt resting quietly. Cards at bedside to see patient, discuss plan.
--- NOTE | 2024-08-23 20:00 | PTCARENOTE ---
assumed care, pt Ox3, forgetful, NIH 1, confirmed with patients family that he is unable to read, I asked him to repeat the words from the NIH packet with no issues noted, pt was able to make out the pictures, pt denies pain, Sinus arrhythmia on the
monitor c PACs, PVCs, prolonged Qt, + pulses, +1 L lower extremity, tachypneic lungs clear SpO2 96%, BSx4 round obese, pt due to void using the urinal, skin per worklist, 20G R wrist slightly bloody, 18G LAC, call gannon within reach, pt able to make
needs known, family updated @ bedside, otherwise refer to documentation.
[2024-08-24] VITALS (25 sets, daily range): BP systolic 108–151; BP diastolic 53–87; PULSE 71; BMI 28.9
--- NOTE | 2024-08-24 00:44 | PTCARENOTE ---
systems reviewed, [facility] 1, 2L NC applied pt SpO2 dropping in the 80's, otherwise refer to documentation.
[2024-08-24 02:29] LABS: Hematocrit 42.1 % (39.0-52.0); Hemoglobin 14.1 g/dL (13.0-18.0); Mean Corp Hgb Conc. 33.5 g/dL (33.0-37.0); Mean Corpuscular Volume 92.1 fL (80.0-94.0); Platelet Count 201 10^3/uL (130-400); Red Cell Dist. Width 12.8 % (11.5-14.5)
[2024-08-24 02:42] LABS: INR 1.04; PT 14.1 Sec (11.4-14.6)
[2024-08-24 02:43] LABS: APTT 28.7 Sec (23.4-35.0)
[2024-08-24 02:56] LABS: Blood Urea Nitrogen 29 mg/dl (9-20); Calcium 9.0 mg/dl (8.4-10.2); Carbon Dioxide 28 mmol/L (22-30); Chloride 109 mmol/L (98-107); Estimated Creatinine Clearance 37 ml/min; Glucose 130 mg/dl (70-99); HDL Cholesterol 29 mg/dl; LDL Cholesterol, Calculated 119 mg/dl; Potassium 5.2 mmol/L (3.5-5.1); Sodium 138 mmol/L (135-145); Very Low Density Lipoprotein 32 mg/dl (0-30); eGFR 45.06
--- NOTE | 2024-08-24 03:54 | PTCARENOTE ---
systems reviewed, no change in NIH from prior assessment, CHG bath, labs sent, otherwise refer to documentation.
--- NOTE | 2024-08-24 07:33 | W.PN.HOSP.TC ---
Addendum entered and electronically signed by Calista Li MD 08/24/24 13:50:
I saw and evaluated the patient independently. I reviewed the resident�s note and agree with findings and plan as documented by Dr. Francois.
GENERAL: well developed, well nourished, male in no apparent distress
HEENT: NC/AT
HEART: regular rate and rhythm, +S1, +S2
LUNGS : clear to auscultation bilaterally
ABDOM: soft, nontender, nondistended, + bowel sounds
EXT: no cyanosis, clubbing, or edema
NEUROLOGIC: nonfocal neuro exam
acute right CVA--presented with Slurred Speech with Right Sided Facial Droop--likely from possible new onset afib (not confirmatory)--s/p TNK--head CT/CTA in ED no acute issues, MRI with Tiny nonhemorrhagic acute/subacute right frontal lobe
infarct-- PT/OT/ start asa/plavix--cont likely for 21 days then change to asa alone?--IF afib detected then pt would likely need anticoagulation with DOAC--await neuro-- lipid panel with LDL 119, not at goal, will start crestor 20 mg HS
New Onset Atrial Fibrillation (unclear if true--cards determining)---s/p TNK--no AC for at least 24 hours--apprec cards-- ECHO with mildly reduced EF of 45%--further workup as per cards
Type 2 Diabetes Mellitus--presumed diet controlled--Patient not currently taking medication therapy--A1c 7.1 on admission--accuchecks when able--possible need for meds
Chronic Kidney Disease Stage 3a--Creatinine 1.4 today, appears to be at baseline
Coronary Artery Disease s/p NM--Unclear if patient has had a coronary artery stent or not based upon medical records available--Requested records from [facility]
Hyperkalemia--Potassium 5.3 on admission--Will trend BMP
Hypocalcemia-Calcium 8.2 on admission
hx DVT/PE--s/p IVC filter--no AC due to GIB history--check US bilateral LE--not resulted yet
DVT proph--SCDs
code status--DNR
downgrade to tele
Original Note:
Today's Communication/Plan
-
MRI Head today
Assessment / Plan
Assessment / Plan
Assessment:
This is an 84 y/o male with pmhx of DVT and pulmonary embolism, hypertension, CKD stage 3 and coronary artery disease who presented to the ED on 08/23/2024 after he awoke at 5AM with sudden onset of slurred speech, right sided facial weakness, and
difficulty with ambulating. He was brought to the ED via EMS, and given TNK for a likely stroke.
Plan:
Slurred Speech with Right Sided Facial Droop in patient with history of DVT and Pulmonary Embolism
-DD: Stroke possibly due to clot from new onset afib, Vitamin Deficiency, Malignancy, Infection (Unlikely due to normal WBC)
-CT Head in the ED showed no acute abnormalities, no hemorrhage, no focal areas suggestive of recent infarction. CTA Head/Neck showed no large vessel occlusions, dissections, or aneurysms. 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
artery
-Patient is status post TNK infusion
-DVT prophylaxis with SCDs for 24 hours, at which point he can start dual antiplatlet therapy with aspirin and Plavix (Start approximately 9AM on today)
-Neurology is following. Will appreciate their insight into his case.
-Pending results of MRI of the head
-PT/OT to begin 24 hours after TNK administration, or after 9AM today
-Patient has passed swallow evaluation from 08/23/2024
-Started rosuvastatin 20mg
Diabetes Mellitus
-Patient not currently taking medication therapy
-A1c 7.1 on admission
-Patient can follow up regarding PO medication after discharge
New Onset Arrhythmia
-Patient not currently tachycardic, not currently on anticoagulation therapy due to history of GI bleed
-No records of arrhythmia noted on records from [facility]
- Cardiology is following. Will appreciate their insight into his case
Chronic Kidney Disease Stage 3a
-Creatinine 1.4 today, appears to be at baseline
-Will continue to monitor Creatinine
Coronary Artery Disease s/p NM
-Patient without history of cardiac stent placement per [facility] records
Hyperkalemia
-Potassium 5.3 on 08/23/2024, 5.2 today
-Will trend BMP
Hypocalcemia - RESOLVED
-Calcemia 8.2 on admission, now 9.0
-Will trend BMP
Anticipated Discharge: 24 - 48 hours
Subjective/Interval History
-
Date of Service: August 24, 2024
Patient was doing well when I arrived. He states his speech is much improved and he does not notice any weakness, dizziness, numbness or changes in his vision. He denied any concerns or complaints today.
Objective Data
-
Labs:
Laboratory Results
08/24/24
02:16
WBC 9.1
Hgb 14.1
Hct 42.1
Plt Count 201
PT 14.1
INR 1.04
APTT 28.7
Sodium 138
Potassium 5.2 H
Chloride 109 H
Carbon Dioxide 28
BUN 29 H
Creatinine 1.5 H
Glucose 130 H
Calcium 9.0
Vital Signs:
Vital Signs
Temp Pulse Resp BP Pulse Ox
98.7 F 70 20 125/64 99
08/24/24 04:10 08/24/24 06:16 08/24/24 06:16 08/24/24 06:16 08/24/24 06:00
I&O
08/23/24 08/24/24 08/25/24
06:59 06:59 06:59
Intake Total 360 / 360
Output Total 1750 / 1750
Balance -1390 / -1390
Review of Systems
-
History Source: Patient
Constitutional: Denies Fever, Fatigue, Chills or Weakness
EENT: Denies Blurry Vision or Decreased Vision
Respiratory: Denies Cough, Trouble Breathing or Wheezing
Cardiac: Denies Chest Pain or Palpitations
Abdomen/GI: Denies Abdominal Pain, Nausea, Vomiting, Diarrhea or Constipated
Musculoskeletal: Denies Joint Pain or Muscle Pain
Skin: Denies Itching or Rash
Neuro: Denies Dizzy, Headache, Weakness, Numbness or Lightheadedness
Physical Exam
-
General: Well Developed, Well Nourished, No Apparent Distress and Comfortable
HEENT: Normocephalic and Atraumatic
Respiratory: Clear to Auscultation
Cardiac: S1/S2 and Irregular Rhythm
GI: Soft and Nontender
Skin: Warm and Dry
Neuro: Awake and Alert
Psych: Calm
--- NOTE | 2024-08-24 08:45 | CON.MD ---
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 130 mg/dl (70-99) H 08/24/24 02:16
Hemoglobin A1c 7.1 % (4.0-5.6) H 08/23/24 07:26
Calcium 9.0 mg/dl (8.4-10.2) 08/24/24 02:16
Phosphorus 4.0 mg/dl (2.5-4.5) 08/23/24 10:59
Magnesium 2.3 mg/dl (1.6-2.3) 08/23/24 10:59
Ferritin 172.0 ng/ml (17.9-464.0) 08/23/24 08:42
Total Bilirubin 0.4 mg/dl (0.2-1.3) 08/23/24 08:42
AST 19 U/L (17-59) 08/23/24 08:42
ALT 21 U/L (0-50) 08/23/24 08:42
Alkaline Phosphatase 72 U/L (38-126) 08/23/24 08:42
Total Protein 6.8 g/dl (6.3-8.2) 08/23/24 08:42
Albumin 3.6 g/dl (3.5-5.0) 08/23/24 08:42
Triglycerides 160 mg/dl (10-149) H 08/24/24 02:16
Total Cholesterol 180 mg/dl (50-199) 08/24/24 02:16
LDL Cholesterol, Calc 119 mg/dl 08/24/24 02:16
VLDL Cholesterol, Calc 32 mg/dl (0-30) H 08/24/24 02:16
HDL Cholesterol 29 mg/dl 08/24/24 02:16
Vitamin B12 520 pg/ml (239-931) 08/23/24 08:42
Folate 14.8 ng/ml (2.76-20) 08/23/24 08:42
TSH (Reflex) 2.01 uIU/ml (0.47-4.68) 08/23/24 08:42
POC Glucose 169 mg/dl (70-99) H 08/23/24 07:30
�
Diagnostic Results:�as per HPI�
CTA of the head and neck�08/23/2024
Mild calcified plaque within the aortic arch. Mild to moderate mixed plaque at the origin of the left subclavian artery causing less than 50% luminal narrowing. Tortuous appearance of the innominate artery.
Mixed calcified and noncalcified plaque within the right carotid bulb and proximal ICA causing less than 50% luminal narrowing. Proximal segments of the right middle cerebral artery are patent.
Mixed calcified and noncalcified plaque within the left carotid bulb and proximal ICA causing less than 50% luminal narrowing. Tortuous ICA. Proximal segments of the left middle cerebral artery are patent.
Both vertebral arteries are patent, however there is a severe stenosis within the intracranial right vertebral artery (image 25, series 602). Moderate calcified plaque within the intracranial left vertebral artery. The basilar artery is patent.
Proximal segments of both posterior cerebral arteries are patent.
The thyroid gland is unremarkable. No cervical chain lymphadenopathy. Visualized salivary glands are within normal limits.
No suspicious osseous bodies. Mild multilevel cervical spondylosis. Severe arthropathy of the right glenohumeral joint.
Mild subpleural reticulation/fibrosis within the upper lobes.
CT head stroke alert without contrast�08/23/2024
There are no acute abnormalities.
There is no intracranial hemorrhage.
There are no abnormal extra-axial fluid collections.
There are no focal areas of diminished density to suggest recent infarct.
There is diffuse cortical atrophy as evidenced by prominence of the CSF spaces.
Additionally, there are punctate and patchy areas of low density in the periventricular and subcortical white matter bilaterally. These white matter changes are nonspecific but given the patient's age are most likely ischemic or degenerative in
origin. Such white matter changes are often seen in older individuals and typically do not correlate clinically.
IMPRESSION: No acute intracranial abnormality.
MRI brain�08/24/2024
Tiny none hemorrhagic acute/subacute right frontal lobe infarct
�
Assessment:
84-year-old male with acute onset aphasia and right-sided facial drooping found to have right posterior parietal lesion on MRI. Patient's symptoms are recovering very well post TNK and is almost back to baseline.
�
Plan�
PM&R�PT/OT to increase independence with ADLs, improve balance, coordination, endurance, strength, mobility, community reintegration, decreased burden of care on others and family education.�
�
CVA: Use dual antiplatelet therapy for 21 days then utilize clopidogrel as the patient would represent an aspirin failure, statin, and blood pressure control (SBP less than 180 and diastolic less than 100 to participate with therapy for ischemic
stroke). Continue to monitor neurologic status.�
Dysphagia: self reported- started 2 weeks prior. Would recommend video swallow test. GI or ENT follow-up as necessary.
Dysarthria: speech evaluation�- improving
Cardiomyopathy, EF 45%
HTN: continue medications, monitor closely�
HLD: Simvastatin was switched to rosuvastatin. Repeat lipid profile in 3 months recommended
Coronary artery disease�: Status post NSTEMI, RCA PCTA with residual disease 2018 ,aspirin, statin, beta-jaylyn.
Atrial fibrillation:� new onset-�According to cardiology no benefit of anticoagulation instead of antiplatelet therapy at this time.����������������������������������
DM II: Accu-Cheks, insulin sliding scale,
Anemia: Likely multifactorial.� Continue to monitor.
Hyperkalemia: 5.2
Psych: Psychology consult.� Monitor mood, adjust medications as needed.�
Skin: monitor for pressure sores/rashes/lesions.�
Pain: acetaminophen as needed.�
Bowel: Colace and Senna, PRN bisacodyl.�
Bladder: Time void, PVRs, PRN straight cath.�
GI Prophylaxis/h/o bleed: Pantoprazole�40 mg daily
History of DVT LLE and B/L UE/PE/leg hematoma: In setting of prolonged hospitalization,status post IVC filter.
Pulmonary: Incentive spirometry�
Safety: Continue to reinforce assistance with all transfers.�
Code Status:� NR�
Dispo�(date/plan/equipment needs): Home with family care.� Social history reviewed.�
Functional and Medical Goals:�Modified Independent with ADL�s, ambulation, transfers�
�Discharge Destination:�Patient is recovering very well from his stroke symptoms after TNK. Currently functional at supervision for all ADLs and is ambulating with single-point cane at 40 feet and 15 fee tx 3 at supervision level. He would benefit
from continued PT/OT/speech at an outpatient level versus home care.
�
Summary of recommendations:
Dysphagia: self reported- started 2 weeks prior. Would recommend video swallow test. GI or ENT follow-up as necessary.
Attending Statement:
I saw and examined the patient today. 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 I agree with the above subjective and physical exam, and plan as documented by ADELIA Ball with adjustments made as necessary.
Overall patient having significant improvement after TNK. Patient and feel like he is at his baseline. Patient will benefit from home with home health versus outpatient therapy. He would like to try to get back to work and driving. Reviewed
stroke concerns, need to continue to take medication and follow-up with his primary care provider. Noted with dysphagia by speech, could benefit from video swallow test with further evaluations with GI or ENT if warranted.
�
Thank you for allowing me to care for your patient. Please contact me with any questions or concerns.
[2024-08-24] MEDS: PROTONIX 40 MG PO (09:27)
--- NOTE | 2024-08-24 10:06 | PTCARENOTE ---
Pt rec'd from night RN at 07:15, NIHSS completed during walking rounds. Score remains 0. Pt AOx3, sl forgetful and [id number]. VSS. Pt weaned to room air. Plan discussed with care team, plan is for MRI at 10:15. Pt brushed teeth, CHG bath and linen
changed, ate 100% breakfast tray. Voiding in urinal PRN. Up oob to chair x1 assist at 09:45. and daughter arrived, updated. Drs. Li and Salty at bedside to discuss plan. Call gannon in reach, no needs at this time.
--- NOTE | 2024-08-24 10:38 | CM ---
Patient seen at bedside with and daughter, physician in ICU. Patient for MRI today and per has had [facility] in the past and appreciated their care. Patient plan is home with [facility]N. CM will continue to follow for discharge planning needs.
Plan; home with [facility] vs SNF pending assessments
--- NOTE | 2024-08-24 11:04 | PTCARENOTE ---
Addendum entered by Tigist Fonseca RN 08/24/24 11:05:
Pt was assisted oob to chair at 09:30, back rubbed, CHG bath and oral care provided. Pt strong gait, single point cane utilized with close supervision.
Original Note:
Pt sent to MRI at 10:20. OK off tele for testing per Dr. Li. Pt now downgraded to telemetry level of care, family updated.
--- NOTE | 2024-08-24 11:21 | W.PN.CARDCBS ---
Today's Communication / Plan
-
No clear A-fib on the monitor. Only sinus with PACs. Will need long-term outpatient monitoring. Will arrange prior to discharge.
Await MRI.
Continue aggressive risk factor modification including rosuvastatin and antiplatelet therapy when okay with neurology.
LVEF is 45% with some global hypokinesis. Will review with outpatient special services director. Add carvedilol hopefully over next 24 hours and possibly lisinopril. May need eventual ischemic evaluation as outpatient.
Impression / Plan
-
Primary Thread Winder: Dr. Ramirez
Assessment:
Presentation with slurred speech, R facial droop
Concern for acute CVA
s/p TNK 08/23/24
Frequent PACs
Cardiomyopathy, EF 45%
CAD status post NSTEMI RCA PCTA with residual circ disease 2017
Type 2 diabetes
CKD
Hypertension
Hyperlipidemia
History of GI bleeding/duodenal ulcer and kidney hematoma 06/2021
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
History of leg hematoma on anticoagulation
Chronic right bundle branch block
GERD
BPH
Echo 06/18/2021: EF 60 to 65%, mild concentric LVH, trace MR, mild AR, mild TR, PAP 30 to 35 mmHg, mild NJ, no pericardial effusion, dilated aortic root
Echo 08/23/2024: EF 45%, mild concentric LVH, mild global hypokinesis, marked paradoxical septal motion, aortic sclerosis, mild AR, mild TR, PAP 38 mmHg, borderline dilated aortic root
Plan:
- Patient presented with symptoms concerning for acute stroke. Head CT without evidence of acute infarct. Brain MRI pending. Neurology following. In ICU status post TNK 08/23/2024. follow closely given prior bleeding events
- Cardiology consulted to evaluate for atrial arrhythmia. Tele with no clear afib, only sinus with PACs.
- Will plan for outpatient cardiac monitoring through primary special services director on discharge for 2 to 4 weeks
- Complicating matters, patient has history of bleeding both on anticoagulation, as well as off. He has history of a leg hematoma on anticoagulation in the past, and then in 2021 had GI bleeding from a duodenal ulcer and kidney hematoma while on
aspirin therapy per patient's (required 5 units of blood). He also has history of DVT/PE status post IVC filter. he is likely both elevated risk for bleeding as well as stroke. If is noted to have A-fib, will need ongoing discussions with
patient and family regarding risks versus benefits of anticoagulation. Was on aspirin 81 mg every 48 hours as an outpatient. hgb 14.8
- Echo with results as above, EF 45%, new compared to prior from 2021. will review records regarding EF at [facility]. Add Coreg 3.125mg po bid later today if BP stable. Considder ischemic eval when recover from CVA
- TSH WNL
- LDL 93. cont Rosuvastatin
- d/w patient and family at bedside
Progress Note - Thread Winder
Subjective
Date of Service: August 24, 2024
Feels well with no new neurologic symptoms. No palpitations
Objective
Labs:
08/24/24 02:16
08/24/24 02:16
Labs
Hgb 14.1 g/dL (13.0-18.0) 08/24/24 02:16
Hct 42.1 % (39.0-52.0) 08/24/24 02:16
Plt Count 201 10^3/uL (130-400) 08/24/24 02:16
PT 14.1 Sec (11.4-14.6) 08/24/24 02:16
INR 1.04 08/24/24 02:16
APTT 28.7 Sec (23.4-35.0) 08/24/24 02:16
Sodium 138 mmol/L (135-145) 08/24/24 02:16
Potassium 5.2 mmol/L (3.5-5.1) H 08/24/24 02:16
BUN 29 mg/dl (9-20) H 08/24/24 02:16
Creatinine 1.5 mg/dL (0.7-1.3) H 08/24/24 02:16
Glucose 130 mg/dl (70-99) H 08/24/24 02:16
Vital Signs and I&O:
Vital Signs
Temp Pulse Resp BP Pulse Ox
97.8 F 75 21 137/68 94
08/24/24 08:07 08/24/24 10:04 08/24/24 10:04 08/24/24 10:04 08/24/24 10:09
Vital Signs
Temp Pulse Resp BP Pulse Ox
97.8 F 75 21 137/68 94
08/24/24 08:07 08/24/24 10:04 08/24/24 10:04 08/24/24 10:04 08/24/24 10:09
Intake & Output
08/22/24 08/23/24 08/24/24 08/25/24
06:59 06:59 06:59 06:59
Intake Total 360 / 360 240 / 240
Output Total 1750 / 1750 300 / 300
Balance -1390 / -1390 -60 / -60
Physical Exam
Physical Exam
GEN: No distress, awake, Ox3
HEENT: supple, anicteric, mmm
LUNGS: CTA, no wheezes/rales
CV: Reg, S1/S2, 1/6 syst LSB, no gallop
ABD: soft, BS+, NT/ND
EXT: No edema
NEURO: Gross non-focal
SKIN: No rash
--- NOTE | 2024-08-24 13:16 | PTCARENOTE ---
Pt had BM in bathroom, pt and family reminded to call for assistance to ambulate for safety. Pt assigned new room on 4th floor, report given to Chrissy ROMANO. Pt and family aware.
--- NOTE | 2024-08-24 13:34 | W.PN.NEURO.1 ---
Addendum entered and electronically signed by Ranjit Armstrong MD 08/24/24 14:45:
Studies reviewed.
I have personally examined the patient. I reviewed and agree with the MANAGER DISTRIBUTION's Note.
My addenda:
Awake, alert, interactive. No acute distress.
Speech intact. Questionable cognitive impairment.
No tremor.
Extra-ocular movements grossly intact.
Facial movements full and symmetric. Hearing intact to normal conversational volume.
Normal UE movements bilaterally.
Neck: full ROM.
Chest: no dyspnea
Heart: no JVD
Ext: (-) Clubbing, (-) Cyanosis, (-) Edema
IMPRESSIONS/RECOMMENDATIONS:
Abrupt onset of aphasia, patient provided tenecteplase
MRI of brain demonstrates lacunar right posterior parietal questionable lesion which would represent an acute ischemic stroke
Use dual antiplatelet therapy for 21 days then utilize clopidogrel as the patient would represent an aspirin failure
No evidence at this time according to cardiology for the benefit of anticoagulation instead of antiplatelet therapy
Continue patient's rosuvastatin as a switch from simvastatin, patient will require reevaluation of lipid profile 3 months after change to ensure her LDL less than 70
Unclear etiology for the patient's dysphagia. Patient most likely will benefit from outpatient GI evaluation
D/W patient
Will continue to follow as needed.
Original Note:
Documented by User: Dalia Ornelas NP 08/24/24 13:53
Today's Communication / Plan
-
.
Neuro Assessment/Plan
Assessment
IMPRESSIONS/RECOMMENDATIONS:
Abrupt onset of aphasia with right-sided facial droop in a patient with prior pulmonary emboli
Patient had episodic aphasia during examination suggesting other TIA or stuttering stroke. Patient may have underlying cognitive disorder as well based on inability to correctly recall own medical history
-CTA head/neck 08/23/24: No large vessel occlusions, dissections, or aneurysms appreciated. 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 Mild atherosclerotic disease within
both carotid bulbs and proximal ICAs causing less than 50% luminal narrowing bilaterally.
-MRI Brain 08/23/24: Tiny nonhemorrhagic acute/subacute right frontal lobe infarct.
I. Tiny acute right frontal lobe ischemic stroke s/p TNK. Etiology uncertain, possibly small vessel disease vs embolic given extensive history of PE, DVT.
Plan
-Initiate DAPT with aspirin 81mg and clopidogrel 75mg daily x21 days. After 21 days, discontinue aspirin and continue clopidogrel indefinitely as this event occurred on aspirin.
-Goal normotension.
-Patient may benefit from extended outpatient cardiac monitoring.
-LDL goal <70. LDL is 93. Home simvastatin 40mg switched to rosuvastatin 20mg daily.
-Goal normoglycemia, hbA1c is 7.1.
-NIHSS and neurological checks per unit guidelines.
-Provide patient/family with a stroke education packet.
-PT/OT/ST evaluations.
-DVT prophylaxis.
-Acetylcholine receptor and MUSK antibodies pending due to report of dysphagia.
-Outpatient neuropsychological testing.
-Follow-up with Neurology as an outpatient.
Subjective/Objective
Subjective Data
Date of Service: August 24, 2024
No acute events overnight. Patient reports feeling 100% at his baseline today. He denies any headache, dizziness, vision changes, speech/swallow difficulty, numbness, and focal weakness.
Objective Data
Vital Signs
Temp Pulse Resp BP Pulse Ox
97.4 F 71 21 149/68 94
08/24/24 11:29 08/24/24 12:02 08/24/24 10:04 08/24/24 12:02 08/24/24 10:09
Lab Results
08/24/24 02:16
08/24/24 02:16
PT 14.1 Sec (11.4-14.6) 08/24/24 02:16
INR 1.04 08/24/24 02:16
APTT 28.7 Sec (23.4-35.0) 08/24/24 02:16
Sodium 138 mmol/L (135-145) 08/24/24 02:16
Potassium 5.2 mmol/L (3.5-5.1) H 08/24/24 02:16
BUN 29 mg/dl (9-20) H 08/24/24 02:16
Glucose 130 mg/dl (70-99) H 08/24/24 02:16
Calcium 9.0 mg/dl (8.4-10.2) 08/24/24 02:16
Phosphorus 4.0 mg/dl (2.5-4.5) 08/23/24 10:59
LDL Cholesterol, Calc 119 mg/dl 08/24/24 02:16
Vitamin B12 520 pg/ml (239-931) 08/23/24 08:42
Patient Allergies
No Known Allergies Allergy (Verified 08/23/24 07:35)
LDL Level: >70, statin ordered
Review of Systems
-
History Source: Patient
EENT: Negative Decreased Vision or Swallowing Difficulty
Respiratory: Negative Cough or Trouble Breathing
Cardiac: Negative Chest Pain or Palpitations
Neuro: Negative Dizzy, Headache or Speech Problem
Physical Exam
-
General: Well Developed, Well Nourished and No Apparent Distress
Eyes: No Ptosis and PERRLA
HEENT: Normocephalic and Atraumatic
Neck: Full Range of Motion
Respiratory: No Dyspnea
GI: Non-distended
Extremities: No Clubbing, No Cyanosis and No Edema
Psych: Unremarkable
Extended Neurological Exam
Mood & Affect: Mood Unremarkable and Affect Unremarkable
Attention Span & Concentration: Awake, Alert and Interactive
Memory: Reduced (AAOx3 but poor historian)
Tremor: Hand Tremor Absent and Head Tremor Absent
Involuntary Movement: None
Speech: Quality Unremarkable, Quantity Unremarkable and Rate of Production Unremarkable
Cranial Nerve II: Left Eye: Pupillary Reactivity Unremarkable, Pupillary Size Unremarkable and Visual [place] Intact
Cranial Nerve II: Right Eye: Pupillary Reactivity Unremarkable, Pupillary Size Unremarkable and Visual [place] Intact
Cranial Nerves III, IV, : Extraocular Movement: Extraocular Movement Full in all Directions
Cranial Nerve VII: Facial Symmetry: Normal Facial Symmetry
Cranial Nerve VIII: Hearing: Unremarkable Hearing to Normal Conversational Volume
Cranial Nerves IX, X: Palate Movement: Palate Elevation Symmetric
Cranial Nerve XI: Shoulder Shrug: Unremarkable
Cranial Nerve XII: Tongue Protusion: Midline
Muscle Strength, Overall: Full Throughout
Pronator Drift: No Drift in Upper Extremities and No Drift in Lower Extremities
Touch Sensation: Double Simultaneous Stimulation Unremarkable
Coordination: [id number] Testing Unremarkable
Modified [place] Score (MRS)
-
Modified Lance Scale (mRS): No symptoms
Score: 0
Data Reviewed
-
CT-A: Report Reviewed and Image Reviewed
CT-Perfusion: Report Reviewed and Image Reviewed
CT Head: Report Reviewed and Image Reviewed
MRI Head: Report Reviewed and Image Reviewed
Labs: Report Reviewed
Lipid Profile: Report Reviewed
HgbA1C: Report Reviewed
Reviewed with: Physician and Patient

Documented by User: Ranjit Armstrong MD 08/24/24 14:42
Modified [place] Score (MRS)
-
Score: 0
[2024-08-24] MEDS: LOW STRENGTH ASPIRIN 81 MG PO (14:25)
[2024-08-24] MEDS: PLAVIX 75 MG PO (14:25)
[2024-08-24] MEDS: CRESTOR 20 MG PO (17:31)
[2024-08-25 03:28] VITALS: BP 158/83
--- NOTE | 2024-08-25 07:12 | W.PN.HOSP.TC ---
Addendum entered and electronically signed by Calista Li MD 08/25/24 17:31:
I saw and evaluated the patient independently. I reviewed the resident�s note and agree with findings and plan as documented by Dr. Francois.
GENERAL: well developed, well nourished, male in no apparent distress
HEENT: NC/AT
HEART: regular rate and rhythm, +S1, +S2
LUNGS : clear to auscultation bilaterally
ABDOM: soft, nontender, nondistended, + bowel sounds
EXT: no cyanosis, clubbing, or edema
NEUROLOGIC: nonfocal neuro exam
acute right CVA--presented with Slurred Speech with Right Sided Facial Droop--likely from possible new onset afib (not confirmatory)--s/p TNK--head CT/CTA in ED no acute issues, MRI with Tiny nonhemorrhagic acute/subacute right frontal lobe
infarct-- PT/OT/ start asa/plavix--cont likely for 21 days then change to asa alone?--IF afib detected then pt would likely need anticoagulation with DOAC--apprec neuro, follow up in 30 days-- lipid panel with LDL 119, not at goal, will start
crestor 20 mg HS
New Onset Atrial Fibrillation (unclear if true--cards determining)---s/p TNK--no AC for at least 24 hours--apprec cards-- ECHO with mildly reduced EF of 45%--further workup as per cards
Type 2 Diabetes Mellitus--presumed diet controlled--Patient not currently taking medication therapy--A1c 7.1 on admission--accuchecks when able--possible need for meds
Chronic Kidney Disease Stage 3a--Creatinine 1.4 today, appears to be at baseline
Coronary Artery Disease s/p NM--Unclear if patient has had a coronary artery stent or not based upon medical records available--Requested records from [facility]
Hyperkalemia--Potassium 5.3 on admission--Will trend BMP
Hypocalcemia-Calcium 8.2 on admission
hx DVT/PE--s/p IVC filter--no AC due to GIB history--check US bilateral LE--not resulted yet
DVT proph--SCDs
code status--DNR
Original Note:
Today's Communication/Plan
-
Discharge
Assessment / Plan
Assessment / Plan
Assessment:
This is an 84 y/o male with pmhx of DVT and pulmonary embolism, hypertension, CKD stage 3 and coronary artery disease who presented to the ED on 08/23/2024 after he awoke at 5AM with sudden onset of slurred speech, right sided facial weakness, and
difficulty with ambulating. He was brought to the ED via EMS, and given TNK for a likely stroke.
Plan:
Slurred Speech with Right Sided Facial Droop in patient with history of DVT and Pulmonary Embolism
-DD: Stroke possibly due to clot from new onset afib, Vitamin Deficiency, Malignancy, Infection (Unlikely due to normal WBC)
-CT Head in the ED showed no acute abnormalities, no hemorrhage, no focal areas suggestive of recent infarction. CTA Head/Neck showed no large vessel occlusions, dissections, or aneurysms. 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
artery
-Patient is status post TNK infusion
-MRI from 08/24/2024 showed 3mm focus of restricted diffusion int he right frontal lobe consistent with acute/subacute infarct. No hemorrhage. Associated hyper intense FLAIR signal suggesting this is not hyper acute.
-Patient has passed swallow evaluation from 08/23/2024
-Continue rosuvastatin 20mg
-Continue DAPT for 21 days, at which point he will stop taking Aspirin and only take Plavix
Diabetes Mellitus
-Patient not currently taking medication therapy
-A1c 7.1 on admission
-Patient can follow up regarding PO medication after discharge
New Onset Arrhythmia
-Patient not currently tachycardic, not currently on anticoagulation therapy due to history of GI bleed
-No records of arrhythmia noted on records from [facility]
-Encouraged follow up with outpatient cardiology
Acute on Chronic Kidney Disease Stage 3a
-Creatinine 1.7 today, 1.4 on admission
-Encouraged outpatient follow up
Coronary Artery Disease s/p NM
-Patient without history of cardiac stent placement per [facility] records
Hyperkalemia -RESOLVED
-Potassium 5.3 on 08/23/2024, normal at 4.9 today
-Will trend BMP
Hypocalcemia - RESOLVED
-Calcemia 8.2 on admission, now 9.0
-Will trend BMP
Anticipated Discharge: Today
Subjective/Interval History
-
Date of Service: August 25, 2024
Patient was awake and doing well when I arrived. His was not present in the room as she was still on her way to the hospital. He states that he is ready to leave the hospital and has no concerns, complaints or questions.
Objective Data
-
Labs:
Laboratory Results
08/25/24
07:00
WBC Pending
Hgb Pending
Hct Pending
Plt Count Pending
Sodium Pending
Potassium Pending
Chloride Pending
Carbon Dioxide Pending
BUN Pending
Creatinine Pending
Glucose Pending
Calcium Pending
Vital Signs:
Vital Signs
Temp Pulse Resp BP Pulse Ox
98.8 F 72 18 158/83 95
08/25/24 03:28 08/25/24 03:28 08/25/24 03:28 08/25/24 03:28 08/25/24 03:28
I&O
08/24/24 08/25/24 08/26/24
06:59 06:59 06:59
Intake Total 360 / 360 1320 / 1320
Output Total 1750 / 1750 900 / 900
Balance -1390 / -1390 420 / 420
Review of Systems
-
History Source: Patient
Respiratory: Denies Cough or Trouble Breathing
Cardiac: Denies Chest Pain
Abdomen/GI: Denies Abdominal Pain, Nausea, Vomiting, Diarrhea or Constipated
Neuro: Denies Dizzy, Headache, Weakness or Numbness
Physical Exam
-
General: Well Developed, Well Nourished, No Apparent Distress and Comfortable
HEENT: Normocephalic and Atraumatic
Respiratory: Clear to Auscultation
Cardiac: Regular Rhythm and S1/S2
GI: Soft, Nontender and Normal Bowel Sounds
Skin: Warm and Dry
Neuro: Awake and Alert; Negative Slurred Speech or Facial Droop
Psych: Calm
--- NOTE | 2024-08-25 07:12 | W.DCSUMMARY ---
Addendum entered and electronically signed by Calista Li MD 08/25/24 17:33:
Read, reviewed, and agree. See same day progress note for additional details. Time spent coordinating care, DC planning, review of DC plan of care with resident, transition of care, review of records in EMR, med rec, consults, notes, d/w
consultants, nursing, family, and CM = 34 minutes
Original Note:
Discharge Summary
Discharge Data
Date of Admission: 08/23/24
Date of Discharge: 08/25/24
-
Pending Results: No
Hospital Course
This is an 84 y/o male with pmhx of DVT and pulmonary embolism, hypertension, CKD stage 3 and coronary artery disease who presented to the ED on 08/23/2024 after he awoke at 5AM with sudden onset of slurred speech, right sided facial weakness, and
difficulty with ambulating. He was brought to the ED via EMS, and given TNK.
In the ED, CT Head in the ED showed no acute abnormalities, no hemorrhage, no focal areas suggestive of recent infarction. CTA Head/Neck showed no large vessel occlusions, dissections, or aneurysms. Severe focal stenosis of the right intracranial
vertebral artery. Mild atherosclerotic disease in proximal carotid bulbs and proximal ICAs, < 50% narrow. His slurred speech improved significantly after TNK, but he was found to have a new irregular heart rhythm. Neurology and Cardiology were
consulted and he was admitted to the hospital.
He was found to be in sinus rhythm with premature atrial contractions. He was started on rosuvastatin. PT and OT evaluated him beginning 24 hours after TNK administration. He continued to improve, and returned to his baseline on 08/24/2024 by his
�s report. MRI of the brain showed a lacunar right posterior parietal questionable lesion which would represent and acute ischemic stroke. He was found to be medically stable on 08/25/2024 and discharged to home with instructions to follow up
with his PCP in less than one week, and to follow up with outpatient cardiology to monitor his new premature atrial contractions.
Discharge Plan
-
Patient Disposition: Home (Routine Discharge)
Discharge Diagnosis/Procedures: Acute Ischemic Stroke, History of DVT and Pulmonary Embolism, Type II Diabetes Mellitus without insulin dependence, New Onset Arrhythmia, Chronic Kidney Disease Stage 3a, Coronary Artery Disease with history of VA,
Hyperkalemia, Hypocalcemia
Condition: Good
Diet: 2 Gram Sodium
Activity: As tolerated
Driving Restrictions: As prior to admission
Referrals:
Angelito Rouse DO [Family Provider, [facility]] - in less than 1 week
Saji Ramirez MD [Non-Admitting Privileges, Internal Medicine] - in two to three weeks
Referral Note: You will need cardiology follow-up for outpatient monitor as well as cardiology follow-up for newly reduced ejection fraction within 2 to 3 weeks.
Additional Discharge Medication Instructions: We are prescribing you a new medication called Clopidogrel (Plavix). You should take both Clopidogrel and Aspirin 81mg once daily for 21 days, after which you may stop taking Aspirin but should CONTINUE
to take Clopidogrel.
We are also prescribing a medication called rosuvastatin. It is important you take this every day.
Prescriptions:
New
clopidogrel 75 mg Tablet
75 mg PO DAILY Qty: 30 0RF
rosuvastatin 20 mg Tablet
20 mg PO QPM Qty: 30 0RF
carvedilol 3.125 mg Tablet
3.125 mg PO BID Qty: 60 0RF
losartan 25 mg Tablet
25 mg PO DAILY Qty: 30 0RF
Continued
garlic 300 mg Capsule
300 mg PO DAILY
tamsulosin [Flomax] 0.4 mg Capsule
0.8 mg PO DAILY
cholecalciferol (vitamin D3) [Vitamin D3] 125 mcg (5,000 unit) Tablet
125 mcg PO DAILY
pantoprazole 40 MG tablet,delayed release (DR/EC)
40 mg PO DAILY
Changed
aspirin 81 mg Tablet,Delayed Release (Dr/Ec)
81 mg PO DAILY Qty: 0 0RF
Discontinued
atorvastatin 40 MG tablet
40 mg PO HS
Discharge Orders:
Discharge Patient (As Directed); Ordered 08/25/24
Ordered By: Janet Francois
Discharge Date and Time
Discharge Date/Time: 08/25/24 15:52
Print Language: PORTUGUESE
[2024-08-25 07:39] LABS: Hematocrit 42.1 % (39.0-52.0); Hemoglobin 13.9 g/dL (13.0-18.0); Mean Corp Hgb Conc. 33.0 g/dL (33.0-37.0); Mean Corpuscular Volume 93.6 fL (80.0-94.0); Platelet Count 200 10^3/uL (130-400); Red Cell Dist. Width 12.7 % (11.5-14.5)
[2024-08-25 07:54] VITALS: BP 142/69
[2024-08-25 08:06] LABS: Blood Urea Nitrogen 32 mg/dl (9-20); Calcium 9.2 mg/dl (8.4-10.2); Carbon Dioxide 26 mmol/L (22-30); Chloride 110 mmol/L (98-107); Estimated Creatinine Clearance 32 ml/min; Glucose 144 mg/dl (70-99); Potassium 4.9 mmol/L (3.5-5.1); Sodium 139 mmol/L (135-145); eGFR 38.78
[2024-08-25] MEDS: PROTONIX 40 MG PO (08:24)
[2024-08-25] MEDS: PLAVIX 75 MG PO (08:24)
[2024-08-25] MEDS: LOW STRENGTH ASPIRIN 81 MG PO (08:25)
[2024-08-25 09:15] VITALS: BP 153/76; PULSE 80; O2SAT 96
[2024-08-25 11:16] VITALS: BP 142/71
--- NOTE | 2024-08-25 13:04 | W.PN.CARDCBS ---
Addendum entered and electronically signed by Bentley Burr MD 08/25/24 14:20:
I saw and examined the patient.
The Brake Operator Helper's note was reviewed and I agree with the note.
Comment: Briefly, 84-year-old man presenting with acute CVA
No clear cardioembolic source identified
Agree with aspirin/Plavix and high intensity statin
Telemetry showing sinus rhythm with second-degree AV block Mobitz type I. No evidence of A-fib/flutter seen.
Would recommend long-term outpatient monitoring and evaluation advisor. Will defer to his primary health navigator to place.
Echo here showing mildly reduced LVEF
New to Coreg 3.125 twice daily today, would continue on discharge
Would also recommend starting losartan 25 mg daily and continuing on discharge
Stable cardiac status. We will sign off.
Patient to follow-up with his primary health navigator
Original Note:
Today's Communication / Plan
-
Start Coreg 3.125 mg twice daily
Dual antiplatelet therapy with aspirin and Plavix per neurology
Continue rosuvastatin
Outpatient cardiology office called and multiple voice messages left to try to arrange outpatient follow-up and monitor.
Stable from cardiac standpoint for discharge
Impression / Plan
-
Primary Customer Management Specialist: Dr. Ramirez, [facility]
Assessment:
Presentation 08/23/2024 with slurred speech, R facial droop
Acute/subacute right frontal lobe infarct on MRI
s/p TNK 08/23/24
Frequent PACs
Cardiomyopathy, EF 45%
CAD
status post NSTEMI RCA PCTA with residual circ disease 2017
Type 2 diabetes
CKD
Hypertension
Hyperlipidemia
History of GI bleeding/duodenal ulcer and kidney hematoma 06/2021
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
History of leg hematoma on anticoagulation
Chronic right bundle branch block
GERD
BPH
Echo 06/18/2021: EF 60 to 65%, mild concentric LVH, trace MR, mild AR, mild TR, PAP 30 to 35 mmHg, mild OH, no pericardial effusion, dilated aortic root
Echo 08/23/2024: EF 45%, mild concentric LVH, mild global hypokinesis, marked paradoxical septal motion, aortic sclerosis, mild AR, mild TR, PAP 38 mmHg, borderline dilated aortic root
Plan:
- Patient presented 08/23 with symptoms (slurred speech, R facial droop) concerning for acute stroke. Head CT without evidence of acute infarct.
- Status post TNK 08/23/2024. Resolved neuro deficits.
- Brain MRI confirmed acute/subacute right frontal lobe infarct.
- Cardiology consulted to evaluate for atrial arrhythmia. Tele with no clear afib, only sinus with PACs. Patient started on Coreg 3.125 mg BID 08/25/2024 for HTN, PACs and reduced EF.
-No evidence of heart failure on examination. Hold on starting ELBA/ARB as patient will be new to Coreg and creatinine has slowly trended upward, currently 1.7. Could be considered as outpatient if renal function stabilizes and blood pressure allows
- Will plan for outpatient cardiac monitoring through primary health navigator on discharge for 2 to 4 weeks. Voice message was left with outpt cardiology office to schedule
- Continue aggressive risk factor modification including rosuvastatin and antiplatelet therapy when okay with neurology
- Of note, patient has history of bleeding both on anticoagulation, as well as off. He has history of a leg hematoma on anticoagulation in the past, and then in 2021 had GI bleeding from a duodenal ulcer and kidney hematoma while on aspirin
therapy per patient's (required 5 units of blood). He also has history of DVT/PE status post IVC filter.
- Echo with results as above, EF 45%, new compared to prior from 2021. Add Coreg 3.125mg po bid. Consider ischemic eval when recover from CVA
- TSH WNL
- LDL 93. cont Rosuvastatin
- d/w patient and family () at bedside
- I spent an additional 10 minutes on top of clinical time on phone with patient's outpatient cardiology office attempting to get office follow-up and have a monitor arranged. After multiple attempts I was placed in 2 different voicemail boxes to
help facilitate outpatient cardiology follow-up as well as outpatient 2-week monitor.
Progress Note - Customer Management Specialist
Subjective
Date of Service: August 25, 2024
Patient seen and examined. Patient's at bedside. Patient reports he is feeling well with resolved neurologic symptoms. He denies chest pain, shortness of breath, palpitations, dizziness or lightheadedness.
Objective
Labs:
08/25/24 07:00
08/25/24 07:00
Labs
Hgb 13.9 g/dL (13.0-18.0) 08/25/24 07:00
Hct 42.1 % (39.0-52.0) 08/25/24 07:00
Plt Count 200 10^3/uL (130-400) 08/25/24 07:00
PT 14.1 Sec (11.4-14.6) 08/24/24 02:16
INR 1.04 08/24/24 02:16
APTT 28.7 Sec (23.4-35.0) 08/24/24 02:16
Sodium 139 mmol/L (135-145) 08/25/24 07:00
Potassium 4.9 mmol/L (3.5-5.1) 08/25/24 07:00
BUN 32 mg/dl (9-20) H 08/25/24 07:00
Creatinine 1.7 mg/dL (0.7-1.3) H 08/25/24 07:00
Glucose 144 mg/dl (70-99) H 08/25/24 07:00
Vital Signs and I&O:
Vital Signs
Temp Pulse Resp BP Pulse Ox
98.7 F 69 20 142/71 95
08/25/24 11:16 08/25/24 11:16 08/25/24 11:16 08/25/24 11:16 08/25/24 11:16
Vital Signs
Temp Pulse Resp BP Pulse Ox
98.7 F 69 20 142/71 95
08/25/24 11:16 08/25/24 11:16 08/25/24 11:16 08/25/24 11:16 08/25/24 11:16
Intake & Output
08/23/24 08/24/24 08/25/24 08/26/24
06:59 06:59 06:59 06:59
Intake Total 360 / 360 1320 / 1320
Output Total 1750 / 1750 900 / 900
Balance -1390 / -1390 420 / 420
Physical Exam
Physical Exam
GEN: No distress, awake, Ox3
HEENT: supple, anicteric, mmm
LUNGS: CTA, no wheezes/rales
CV: Reg, S1/S2, 1/6 syst LSB, no gallop
ABD: soft, BS+, NT/ND
EXT: No edema clubbing or cyanosis
NEURO: Gross non-focal
SKIN: No rash, warm, dry, pink
[2024-08-25] MEDS: COREG 3.125 MG PO (14:20)
--- NOTE | 2024-08-25 14:50 | VNURNOTE ---
Home Health Liaison spoke with patient's spouse to discuss [facility] nurse/therapy, visits, schedule and homebound status. She is agreeable and understands that visits at home will be 2-3 x per week to assess and teach medical management. Reinforced
homebound criteria. Spouse is aware that [facility] will contact them for start of care in 1-2 days after discharge from .
[facility] referral completed in [facility].
[2024-08-25 15:18] VITALS: BP 127/84
--- NOTE | 2024-08-25 15:40 | CM ---
Patient seen earlier today with physicians on . Patient plan is for discharge home with [facility] to follow. IMM completed and signed form placed on chart. Patient family to transport home. Patient stated his understanding that he would be
following up with neurology and would be talking to them about resumption of driving. Patient in agreement with [facility]. CM will continue to follow for discharge planning needs.
Plan; home with [facility]
== END 2024-08-25 15:52 | disposition home health service (06) | DRG 62 ==
LOC: 4 WEST ACU 08:40
PROVIDERS: Registered Nurse Critical Care Medicine; ADMITTING PHYSICIAN Internal Medicine; CONSULT PHYSICIAN Internal Medicine; CONSULT PHYSICIAN Internal Medicine Cardiovascular Disease; CONSULT PHYSICIAN Physical Medicine & Rehabilitation; CONSULT PHYSICIAN Psychiatry & Neurology Neurology; EMERGENCY PHYSICIAN Emergency Medicine; FAMILY PHYSICIAN Family Medicine
PROC: 3E03317 Introduction of Other Thrombolytic into Peripheral Vein, Percutaneous Approach (ICD-10-PCS; 2024-08-23)
DX: I63.9 Cerebral infarction, unspecified (principal); I42.9 Cardiomyopathy, unspecified; R47.1 Dysarthria and anarthria; R29.810 Facial weakness; N18.31 Chronic kidney disease, stage 3a; I48.91 Unspecified atrial fibrillation; I12.9 Hypertensive chronic kidney disease with stage 1 through stage 4 chronic kidney disease, or unspecified chronic kidney disease; M19.90 Unspecified osteoarthritis, unspecified site; E78.00 Pure hypercholesterolemia, unspecified; R47.01 Aphasia; R13.10 Dysphagia, unspecified; N39.41 Urge incontinence; R05.3 Chronic cough; I45.10 Unspecified right bundle-branch block; K21.9 Gastro-esophageal reflux disease without esophagitis; N40.0 Benign prostatic hyperplasia without lower urinary tract symptoms; E11.22 Type 2 diabetes mellitus with diabetic chronic kidney disease; D64.9 Anemia, unspecified; I70.0 Atherosclerosis of aorta; G89.29 Other chronic pain; E11.36 Type 2 diabetes mellitus with diabetic cataract; I25.10 Atherosclerotic heart disease of native coronary artery without angina pectoris; E87.5 Hyperkalemia; E83.51 Hypocalcemia; Z66 Do not resuscitate; I25.2 Old myocardial infarction; Z86.718 Personal history of other venous thrombosis and embolism; Z79.82 Long term (current) use of aspirin; Z86.711 Personal history of pulmonary embolism; Z95.828 Presence of other vascular implants and grafts; Z95.5 Presence of coronary angioplasty implant and graft; Z83.3 Family history of diabetes mellitus; Z87.11 Personal history of peptic ulcer disease
CPT/HCPCS: 0042T; 70450; 70496; 70498; 70551; 71045; 80048; 80053; 80061; 82607; 82728; 82746; 82962; 83036; 83735; 84100; 84443; 85025; 85027; 85610; 85652; 85730; 86041; 92523; 92610; 93005; 93306; 96374; 97116; 97163; 97167; 97530; 99291; J3101; Q9950; Q9967

== ENCOUNTER 2024-11-16 14:35 | Inpatient (IN) | payer MEDICARE, BC, SELFPAY ==
[2024-11-16] VITALS (8 sets, daily range): BP systolic 94–131; BP diastolic 48–66
[2024-11-16] MEDS: NSS 1000 IV (11:35)
[2024-11-16] MEDS: TYLENOL 650 MG PO ×2 (11:35→18:25)
[2024-11-16 11:40] LABS: Hematocrit 37.9 % (39.0-52.0); Hemoglobin 12.3 g/dL (13.0-18.0); Mean Corp Hgb Conc. 32.5 g/dL (33.0-37.0); Mean Corpuscular Volume 92.9 fL (80.0-94.0); Nucleated Red Blood Cells % 0 % (-); Platelet Count 187 10^3/uL (130-400); Red Cell Dist. Width 13.2 % (11.5-14.5)
--- NOTE | 2024-11-16 11:56 | ED.GENMED ---
History of Present Illness
<Carter Rossi PA-C - Last Filed: 11/16/24 12:53>
General
Chief Complaint: Cold/Flu/URI Symptoms
Source: patient
Exam Limitations: none
Time Seen by Provider: 11/16/24 11:20
History of Present Illness
History of Present Illness:
84-year-old male presents from home with complaints of fatigue shaking chills and sweats starting this morning. He has been treated for left leg cellulitis with an antibiotic. He feels his leg is getting better. He now notes productive cough. No
vomiting. He has a history of atrial fibrillation. No vomiting. No abdominal pain. No other complaints at this time
<George Lopez DO - Last Filed: 11/16/24 13:00>
History of Present Illness
History of Present Illness:
84-year-old male presents from home with complaints of fatigue shaking chills and sweats starting this morning. He has been treated for left leg cellulitis with an antibiotic. He feels his leg is getting better. He now notes productive cough. No
vomiting. He has a history of atrial fibrillation. No vomiting. No abdominal pain. No other complaints at this time. On exam, no extra erythema or warmth of the left lower extremity distally.
Past History
<Carter Rossi PA-C - Last Filed: 11/16/24 12:53>
Past History
ED Past Medical History: HTN, [place] (4 years ago s/p balloon) and Other (HLD, arthritis, scoliosis, pre-DM)
Patient has exhibited threatening behavior?: No
Social History
Tobacco: Non-smoker
Alcohol: None
Drug: None
Personal:
Living: with family
Employment: Employed
Family History
Family History: Other (FH of leg pain in mother and sister)
Phy Exam
<Carter Rossi PA-C - Last Filed: 11/16/24 12:53>
Physical Exam
Physical Exam:
General: Well-appearing male no acute respiratory distress
HEENT normal cephalic atraumatic mucosa moist
Heart: Slightly tachycardic but regular lungs: Clear no wheeze
Abdomen is soft nontender
Extremities: No cyanosis or edema
Neurologic exam: Tremor noted but alert and oriented otherwise following commands answering questions appropriately
Skin is warm subtle erythema noted to the left lower leg that is surrounding an abrasion that is healing. No significant induration or tenderness
Course
<Carter Rossi PA-C - Last Filed: 11/16/24 12:53>
Orders/Labs/Results
Orders:
Orders
11/16/24 11:28
CMP [Comprehensive Metabolic Panel] Urgent
COVID-19 Antigen Urgent
Source: Nasal Swab
Complete Blood Count/With Diff Urgent
Lactic Acid Urgent
Blood Culture Urgent
CAROLYN Source: Blood/Venous
Specimen Description:
INF RAPID [Influenza A+B Rapid Molecular] Urgent
CAROLYN Source: Nasal Swab
Specimen Description:
11/16/24 11:30
0.9% Sodium Chloride 1000 ml [Nss] 1,000 ml IV BOLUS
CR Chest - 2 Views Urgent
Comment:
Reason For Exam: fever, cough
11/16/24 11:31
Urinalysis Reflex To Culture Urgent
Acetaminophen [Tylenol] 650 mg PO NOW STA
11/16/24 12:46
CeFAZolin 2 GRAM [Ancef] 2 grams in 10 ml IV NOW
Abnormal Lab Results
11/16/24
11:28
RBC 4.08 L 10^6/uL
(4.70-6.10)
Hgb 12.3 L g/dL
(13.0-18.0)
Hct 37.9 L %
(39.0-52.0)
MCHC 32.5 L g/dL
(33.0-37.0)
Absolute Neuts (auto) 7.9 H 10^3/uL
(1.4-6.5)
Absolute Lymphs (auto) 0.4 L 10^3/uL
(1.2-3.4)
Neutrophils % 86.4 H %
(42.2-75.2)
Lymphocytes % 4.8 L %
(20.5-51.1)
Potassium 5.4 H mmol/L
(3.5-5.1)
Chloride 108 H mmol/L
(98-107)
BUN 38 H mg/dl
(9-20)
Creatinine 1.5 H mg/dL
(0.7-1.3)
Glucose 127 H mg/dl
(70-99)
11/16/24 11:28
11/16/24 11:28
Vital Signs
Initial and Last Documented VS:
Initial Vital Signs
Temp Pulse Resp Pulse Ox
39.6 C H 85 20 96
11/16/24 11:18 11/16/24 11:18 11/16/24 11:18 11/16/24 11:18
Last Documented Vital Signs
Temp Pulse Resp BP Pulse Ox
37.1 C 103 31 131/60 96
11/16/24 12:37 11/16/24 11:30 11/16/24 11:30 11/16/24 11:22 11/16/24 12:00
Nuvialt;George Lopez, DO - Last Filed: 11/16/24 13:00>
Orders/Labs/Results
Orders:
Orders
11/16/24 11:28
CMP [Comprehensive Metabolic Panel] Urgent
COVID-19 Antigen Urgent
Source: Nasal Swab
Complete Blood Count/With Diff Urgent
Lactic Acid Urgent
Blood Culture Urgent
CAROLYN Source: Blood/Venous
Specimen Description:
INF RAPID [Influenza A+B Rapid Molecular] Urgent
CAROLYN Source: Nasal Swab
Specimen Description:
11/16/24 11:30
0.9% Sodium Chloride 1000 ml [Nss] 1,000 ml IV BOLUS
CR Chest - 2 Views Urgent
Comment:
Reason For Exam: fever, cough
11/16/24 11:31
Urinalysis Reflex To Culture Urgent
Acetaminophen [Tylenol] 650 mg PO NOW STA
11/16/24 12:46
CeFAZolin 2 GRAM [Ancef] 2 grams in 10 ml IV NOW
Abnormal Lab Results
11/16/24
11:28
RBC 4.08 L 10^6/uL
(4.70-6.10)
Hgb 12.3 L g/dL
(13.0-18.0)
Hct 37.9 L %
(39.0-52.0)
MCHC 32.5 L g/dL
(33.0-37.0)
Absolute Neuts (auto) 7.9 H 10^3/uL
(1.4-6.5)
Absolute Lymphs (auto) 0.4 L 10^3/uL
(1.2-3.4)
Neutrophils % 86.4 H %
(42.2-75.2)
Lymphocytes % 4.8 L %
(20.5-51.1)
Potassium 5.4 H mmol/L
(3.5-5.1)
Chloride 108 H mmol/L
(98-107)
BUN 38 H mg/dl
(9-20)
Creatinine 1.5 H mg/dL
(0.7-1.3)
Glucose 127 H mg/dl
(70-99)
11/16/24 11:28
11/16/24 11:28
Vital Signs
Initial and Last Documented VS:
Initial Vital Signs
Temp Pulse Resp Pulse Ox
39.6 C H 85 20 96
11/16/24 11:18 11/16/24 11:18 11/16/24 11:18 11/16/24 11:18
Last Documented Vital Signs
Temp Pulse Resp BP Pulse Ox
37.1 C 103 31 131/60 96
11/16/24 12:37 11/16/24 11:30 11/16/24 11:30 11/16/24 11:22 11/16/24 12:00
<Carter Rossi PA-C - Last Filed: 11/16/24 12:53>
MDM/Problems Addressed
Differential Diagnosis Includes:
Fever fatigue weakness. Consider viral illness versus sepsis versus dehydration electrolyte abnormality. Check chest x-ray for pneumonia. COVID and flu test pending. Temperature here is 103 rectally. Tylenol ordered fluids ordered.
<Carter Rossi PA-C - Last Filed: 11/16/24 12:53>
*Pulse Oximetry
SaO2: 96
Oxygen Mode of Delivery: Room air
Patient hypoxic: no
*Critical Care Note
Total Time (30-74mins, 75-104mins- exclusive of procedures): Not Applicable
<Carter Rossi PA-C - Last Filed: 11/16/24 12:53>
Update Note
Update Note:
Chest x-ray and COVID test negative. There is a lactic acid level 2.0 left shift on the blood count. There is some erythema of the left leg but family and patient notes this is improved. Patient was tachycardic. Concern for underlying sepsis or
bacteremia with SIRS criteria. Fluids ordered Ancef ordered. Discussed with emergency room attending. Will admit to hospital
ED Attending Note
<Carter Rossi PA-C - Last Filed: 11/16/24 12:53>
-
Portions of this chart may have been created with voice recognition software.� Occasional wrong word or��sound alike� substitutions may have occurred due to the inherent limitations of voice recognition software.
<George Lopez DO - Last Filed: 11/16/24 13:00>
ED Attending Note
Patient seen and examined by attending physician: Yes
I performed the substantive portion of visit, reviewed & personally made and approve the management plan that is documented in note by myself or MAHESH.: Yes
ED Attending Note:
I evaluated patient bedside. Admitted to the he is also developing antibiotics for cellulitis. Patient does meet SIRS bacteremia. is concerned about his overall appearance and generalized weakness. The most part, family states that his leg
appears baseline however the pain scab is new. Given his advanced age with fever I am concerned about the possibility of bacteremia. Will give IV antibiotics.
Discharge Plan
Departure
Patient Disposition: Admit
Date of Disposition: 11/16/24
Time of Disposition: 12:51
Presentation/result/management discussed w/ accepting MD/DO: Hospitalist
Patient with high blood pressure during this ER visit?: No
Discharge Problem:
Fever
Prescriptions:
No Action
garlic 300 mg Capsule
300 mg PO DAILY
tamsulosin [Flomax] 0.4 mg Capsule
0.8 mg PO DAILY
cholecalciferol (vitamin D3) [Vitamin D3] 125 mcg (5,000 unit) Tablet
125 mcg PO DAILY
pantoprazole 40 MG tablet,delayed release (DR/EC)
40 mg PO DAILY
clopidogrel 75 mg Tablet
75 mg PO DAILY Qty: 30 0RF
rosuvastatin 20 mg Tablet
20 mg PO QPM Qty: 30 0RF
aspirin 81 mg Tablet,Delayed Release (Dr/Ec)
81 mg PO DAILY Qty: 0 0RF
carvedilol 3.125 mg Tablet
3.125 mg PO BID Qty: 60 0RF
losartan 25 mg Tablet
25 mg PO DAILY Qty: 30 0RF
Interventions
Interventions:
*Risk Screen - Suicide Last Done: 11/16/24 11:18
*General Assessment Last Done: 11/16/24 11:18
*Neglect/Abuse Screening Last Done: 11/16/24 11:18
*ED COVID-19 Vaccine History Last Done: 11/16/24 11:18
*ED Influenza Vaccine History Last Done: 11/16/24 11:18
ED- Pulmonary Assessment Last Done: 11/16/24 11:30
Discharge Date and Time
Print Language: NAMIBIAN
[2024-11-16 12:01] LABS: COVID-19 Antigen Negative (Negative)
[2024-11-16 12:25] LABS: ALT (SGPT) 19 U/L (0-50); AST (SGOT) 20 U/L (17-59); Albumin 4.2 g/dl (3.5-5.0); Alkaline Phosphatase 72 U/L (38-126); Blood Urea Nitrogen 38 mg/dl (9-20); Calcium 9.3 mg/dl (8.4-10.2); Carbon Dioxide 25 mmol/L (22-30); Chloride 108 mmol/L (98-107); Glucose 127 mg/dl (70-99); Potassium 5.4 mmol/L (3.5-5.1); Sodium 142 mmol/L (135-145); Total Protein 7.6 g/dl (6.3-8.2); eGFR 45.06
--- NOTE | 2024-11-16 12:56 | HPS.HSE ---
Family Physician
-
Family Physician:
Chief Complaint
-
Rigors and hi grade fever at ER
Has been treating for cellulitis of left leg since Wednesday
History of Present Illness
84M non smoker HTN, HLD, CKD3, BPH fatigue shaking chills and sweats starting this morning. He has been treated for left leg cellulitis with an antibiotic.
- leg is getting better buit still warm, red and tender
- now notes productive cough, productive cough. No vomiting.
- No vomiting. No abdominal pain. No other complaints at this time
Medical History
Past Medical History
Past Medical History: Reports CAD, GA and Other (CKD Stage 3, Hx Subcapsular hematoma of the right kidney, Hx of DVT and Pulmonary Embolism, Type 2 Diabetes without insulin dependence); Denies Arrhythmia or HTN (Patient and denied)
Past Surgical History: Reports Other (Cataracts)
Social History
Tobacco: Non-smoker
Alcohol: None
Drug: None
Personal:
Living: With Family
Employment: Employed
Family History
Family History: Other (Patient denied any family history of cancer, diabetes or heart attack)
Allergies / Home Medications
Allergies reflects when Allergies were last updated in [facility].
Home Medications with original date entered in [facility]
Allergy/Medication List:
Allergies
Allergy/AdvReac Type Severity Reaction Status Date / Time
No Known Allergies Allergy Verified 08/23/24 07:35
Home Medications
atorvastatin 40 mg tablet 40 mg PO HS 05/29/21
aspirin 81 mg tablet,delayed release 81 mg PO Q48H 08/23/24
cholecalciferol (vitamin D3) 125 mcg (5,000 unit) tablet (Vitamin D3) 125 mcg PO DAILY 08/23/24
garlic 300 mg capsule 300 mg PO DAILY 08/23/24
pantoprazole 40 mg tablet,delayed release 40 mg PO DAILY 08/23/24
tamsulosin 0.4 mg capsule (Flomax) 0.8 mg PO DAILY 08/23/24
Review of Systems
-
Constitutional: Reports Chills (rigors )
EENT: Reports No Symptoms
Respiratory: Reports No Symptoms
Cardiac: Reports No Symptoms
Abdomen/GI: Reports No Symptoms
: Reports No Symptoms
Musculoskeletal: Reports Other (cellulitis of left leg since Wednesday )
Skin: Reports No Symptoms
Neurological: Reports No Symptoms
Endocrine: Reports No Symptoms
Hematologic/Lymphatic: Reports No Symptoms
Psych: Reports No Symptoms
Physical Exam
Vital Signs
Vital Signs
Temp Pulse Resp BP Pulse Ox
98.7 F 103 31 131/60 96
11/16/24 12:37 11/16/24 11:30 11/16/24 11:30 11/16/24 11:22 11/16/24 12:00
Physical Exam
General: Well Developed, Well Nourished, No Apparent Distress, Comfortable and Conversant
HEENT: NormoCephalic, Anicteric, Atraumatic, Nose Appears Normal and Ears Appear Normal
Respiratory: Clear
Cardiac: S1/S2 and Irregular Rhythm
GI: Soft, Non Tender and Normal Bowel Sounds
Genito-urinary: Deferred by me
Skin: Warm, Dry and Other (Skin is warm subtle erythema noted to the left lower leg that is surrounding an abrasion that is healing. No significant induration or tenderness)
Neuro: Awake, Alert, No Motor Deficits (Strength 4/5 in all extremities) and Facial Droop (Right sided facial droop noted near corner of the mouth, patient is able to smile without significant facial droop)
Psych: Calm
Laboratory Results
-
11/16/24 11:28
11/16/24 11:28
Laboratory Results
Lactic Acid 2.0 mmol/L (0.7-2.0) 11/16/24 11:28
Total Bilirubin 0.9 mg/dl (0.2-1.3) 11/16/24 11:28
AST 20 U/L (17-59) 11/16/24 11:28
ALT 19 U/L (0-50) 11/16/24 11:28
Alkaline Phosphatase 72 U/L (38-126) 11/16/24 11:28
Data Reviewed
-
Diagnostic Radiology: Report Reviewed by me
Lab Data: Labs Reviewed by me
Old Records: Reviewed
Impression/Plan
-
VS
11/16/24
11:18 11/16/24
11:22
Temp 103.3 F H
Temp route: Rectal
Pulse 85 103
Resp Rate 20
SaO2 96 96
Oxygen Mode of Delivery Room air
11/16/24
11:28
SARS-CoV-2 Antigen Negative
08/25/24 11/16/24
07:00 11:28
WBC 9.1
Hgb 12.3 L
Plt Count 187
Sodium 142
Potassium 5.4 H
Chloride 108 H
Carbon Dioxide 26 25
Creatinine 1.7 H 1.5 H
eGFR 38.78 45.06
CXR:
1. Mild cardiomegaly.
2. Mild pulmonary vascular congestion.
Echo 08/23/2024: EF 45%, mild concentric LVH, mild global hypokinesis, marked paradoxical septal motion, aortic sclerosis, mild AR, mild TR, PAP 38 mmHg, borderline dilated aortic root
Last hospitalist admission: Date of Admission: 08/23/24 - Date of Discharge: 08/25/24
DC DX;
Acute Ischemic Stroke, History of DVT and Pulmonary Embolism, Type II Diabetes Mellitus without insulin dependence, New Onset Arrhythmia, Chronic Kidney Disease Stage 3a, Coronary Artery Disease with history of GA, Hyperkalemia, Hypocalcemia
ASSESSMENT & PLAN
Sepsis ( RT 103, ST, LA2 )
Diff origis. cellulitis LLEx
- NEG CXR. Nl WCC. NEG UA
- NEG Covid
- has been treating for cellulitis of left leg since Wednesday and notes improvement since then.
- PRN Tylenol and IVF
- Empiric IV Ancef
- blood cultures pending.
Hyperkalemia K 5.4
CKD3- stable. Current Cr 1.5 , baseline is 1.7
HX subcapsular hematoma of the right kidney,
- Hold Losartan
- FU K tonight and in AM s/p septic fluid
HX Atrial Fibrillation (unclear if true--cards determining)
HX mildly reduced EF of 45% as of Echo 08/23/2024
HX second-degree AV block Mobitz type I.
- clinically not in acute HF but to check pro BNP to be thorough
- c/w [employer] Dabigatran and Carvedilol
- Of note: lethargic with Pradaxa thus switched to Dabigatran and no longer lethargic
- TLM monitorig
HX CAD, GA - status post NSTEMI RCA PCTA with residual circ disease 2017 ( known to [facility])
HX Cardiomyopathy, EF 45%
Bn HTN
- Holding Losartan due to K 5.4
- c/w Carvedilol
Type 2 Diabetes without insulin dependence
08/23/24 A1C 7.1
- 2000 felix diet
- add ISS low
- f/u BGs
HX IVCF placement due to HX GIB
HX DVT and Pulmonary Embolism
HX TNK August 23 2024 for right CVAwith Slurred Speech with Right Sided Facial Droop-
Prior MRI with Tiny nonhemorrhagic acute/subacute right frontal lobe infarct
HLD on Rosuvastatin 20mg qpm
- c/w Statin
- c/w Pradaxa
- Noted not on DAPL
Known HX
Frequent PACs
HX GI bleeding/duodenal ulcer and kidney hematoma 06/2021
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
HX leg hematoma on anticoagulation
Chronic right bundle branch block
GERD
BPH
DVT Px: [employer] Dabigatran
Code: Full code per patient in the presence of spouyse and daughter
IP TLM due to sepsis with ST
[2024-11-16] MEDS: ANCEF 10 IV ×2 (13:13→21:42)
[2024-11-16 17:07] LABS: Glucose - Point of Care 169 mg/dl (70-99)
[2024-11-16 17:36] LABS: Urine Character Clear (Clear)
[2024-11-16] MEDS: CRESTOR 20 MG PO (18:20)
[2024-11-16] MEDS: NSS 500 IV (18:20)
[2024-11-16] MEDS: NOVOLOG FLEXPEN-LOW RESISTANCE 1 UNITS SC (18:30)
[2024-11-16 19:37] LABS: Urine Red Blood Cell 0-2 /HPF (0-2); Urine Squamous Cell 0-2 /LPF (Few); Urine White Cell 0-2 /HPF (0-5)
[2024-11-16] MEDS: PRADAXA 150 MG PO (20:32)
[2024-11-16] MEDS: COREG 3.125 MG PO (20:33)
[2024-11-16 22:00] LABS: Glucose - Point of Care 141 mg/dl (70-99)
[2024-11-17] VITALS (7 sets, daily range): BP systolic 112–136; BP diastolic 60–68; PULSE 66; O2SAT 96
[2024-11-17] MEDS: ANCEF 10 IV ×2 (05:12→13:17)
[2024-11-17 06:18] LABS: Blood Urea Nitrogen 32 mg/dl (9-20); Calcium 8.4 mg/dl (8.4-10.2); Carbon Dioxide 24 mmol/L (22-30); Chloride 110 mmol/L (98-107); Glucose 116 mg/dl (70-99); Potassium 4.6 mmol/L (3.5-5.1); Sodium 140 mmol/L (135-145); eGFR 45.06
[2024-11-17 06:19] LABS: Hematocrit 35.9 % (39.0-52.0); Hemoglobin 11.3 g/dL (13.0-18.0); Mean Corp Hgb Conc. 31.5 g/dL (33.0-37.0); Mean Corpuscular Volume 96.0 fL (80.0-94.0); Platelet Count 148 10^3/uL (130-400); Red Cell Dist. Width 13.5 % (11.5-14.5)
[2024-11-17] MEDS: NOVOLOG FLEXPEN-LOW RESISTANCE SC ×3 (08:01→15:58)
[2024-11-17] MEDS: PRADAXA 150 MG PO ×2 (08:38→21:38)
[2024-11-17] MEDS: PROTONIX 40 MG PO (08:38)
[2024-11-17] MEDS: FLOMAX 0.8 MG PO (08:38)
[2024-11-17] MEDS: COREG 3.125 MG PO (08:45)
[2024-11-17 09:28] LABS: Glycohemoglobin (HgbA1c) 6.8 % (4.0-5.6)
[2024-11-17 11:32] LABS: Glucose - Point of Care 123 mg/dl (70-99)
--- NOTE | 2024-11-17 12:13 | W.PN.HOSP.TC ---
Today's Communication/Plan
-
Antibiotics. Monitor renal function. Cardiology ID and nephrology eval.
Assessment / Plan
Assessment / Plan
Physical exam:
General: Acutely ill
HEENT: Normocephalic, Atraumatic and Moist Mucous Membranes
Respiratory: Few coarse crackles in the bases; Negative Wheezes or Rhonchi
Cardiac: Regular Rhythm and S1/S2
GI: Soft, Nontender and Nondistended
Musculoskeletal: Left lower extremity with dry scab and mild erythema. No Clubbing, No Cyanosis and No Edema
Neuro: Awake, Alert and Oriented, no neurological deficit
Psych: Calm
A/P:
Sepsis with E. coli bacteremia and cellulitis:
Source of E. coli unclear
Changed IV cefazolin to IV ceftriaxone
ID consult-discussed with ID
Plan for CT of the abdomen with contrast but given underlying CKD will involve nephrology for evaluation first--> discussed at length with family including and daughter at bedside and agreeable with plan.
Might do ultrasound of the abdomen in the meantime if available
Nephrology consult-discussed with renal
Left lower extremity cellulitis:
Improving
Ceftriaxone will continue to work on cellulitis
Monitor clinically
Acute on chronic systolic congestive heart failure:
He does have some heart failure features with dyspnea, lung crackles on exam and mild increase JVD, CHF on chest x-ray, and increased BNP.
On the other hand, he is not hypoxic and not much dyspnea at rest and underlying CKD so we will request cardiology evaluation and hold off on diuresis
Patient and family are planning to transfer his care to [facility] Dr. Cespedes and she appears to be covering cardiology service.
Cardiology consult
Will follow-up cardiology recommendation
CKD stage IIIb:
Avoid nephrotoxic
Planning to use contrast so might benefit from bicarb but given heart failure issues appears to be a challenge. Nephrology consulted.
Monitor renal function
Paroxysmal atrial fibrillation:
On rate control, Coreg 3.125 mg twice a day
On anticoagulation, Pradaxa 150 mg twice a day
Anemia:
No signs of active bleeding
Continue to monitor hemoglobin closely
Hyperkalemia:
Resolved
Holding ARB
Monitor potassium
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
Status post TNK procedure
On anticoagulation and statins
CAD:
On anticoagulation beta-blockers and statins
History of GI bleed in the past:
On PPI
No evidence of active bleeding
Diabetes mellitus type 2:
Insulin sliding scale
Hemoglobin A1c 6.8
History of DVT PE:
On anticoagulation
Status post IVC filter in the past
History of BPH:
On Flomax 0.8 mg daily
DVT prophylaxis:
On Pradaxa
CODE STATUS:
Full code
Total time spent on today's encounter was 62 minutes which included time spent in counseling the patient/family regarding diagnosis and treatment plan as listed above, goals of care, and symptom management. Case was discussed with nursing staff,
specialists, and care coordinators/case management. All labs and imaging personally reviewed by me. Remainder the time spent in detailed review of previous records, lab data, imaging, and other medical provider documentation.
Anticipated Discharge: > 48 hours
Subjective/Interval History
-
Date of Service: November 17, 2024
Patient reports left lower extremity looks better overall. He does complain of shortness of breath. He also complains of lack of appetite and abdominal discomfort at times. Afebrile
Objective Data
-
Labs:
Laboratory Results
11/17/24 11/17/24
01:00 05:19
WBC 6.9
Hgb 11.3 L
Hct 35.9 L
Plt Count 148 D
Sodium Cancelled 140
Potassium Cancelled 4.6
Chloride Cancelled 110 H
Carbon Dioxide Cancelled 24
BUN Cancelled 32 H
Creatinine Cancelled 1.5 H
Glucose Cancelled 116 H
Calcium Cancelled 8.4
Vital Signs:
Vital Signs
Temp Pulse Resp BP Pulse Ox
98.1 F 66 18 136/67 97
11/17/24 11:01 11/17/24 11:01 11/17/24 11:01 11/17/24 11:01 11/17/24 11:01
I&O
11/16/24 11/17/24 11/18/24
06:59 06:59 06:59
Output Total 450 / 450
Balance -450 / -450
--- NOTE | 2024-11-17 15:27 | CON.CAR ---
Addendum entered and electronically signed by Светлана Cespedes MD 11/17/24 18:46:
I saw and evaluated the patient, and I provided the substantive portion of the medical decision making.
I reviewed and agree with the note by Kim Constantino and it accurately reflects our care.
I personally performed the medical decision making of the this encounter and my assessment and plan is below:
Comment:
84-year-old gentleman with a past medical history of CVA in August 2024 subsequent paroxysmal atrial fibrillation found on outpatient monitoring now on dabigatran as Eliquis was too costly, history of gastric ulcer disease and GI bleeding 2021,
cardiomyopathy with an EF of 45%, CKD, prior DVT, and right bundle branch block presented for evaluation for fevers and lower extremity cellulitis who we are asked to see in evaluation for heart failure. Per the patient he has been feeling more
shortness of breath with exertion. He denies any orthopnea or PND. He denies any shortness of breath at rest. He denies any chest pain or pressure. On exam, he has a regular rate and rhythm with a normal S1-S2 no murmurs gallops were appreciated
lungs had slight rhonchi diffusely no wheezes or rales. Extremities are warm well-perfused no clubbing cyanosis. Slight erythema and edema. Chest x-ray on my personal review does show mild pulmonary congestion with cephalization. Labs are
significant for a positive E. coli blood culture from 11/16/2024. Hemoglobin is 11.3 creatinine 1.5 with a GFR of 45 this seems to be about his baseline. EKG shows sinus rhythm with first-degree AV block right bundle branch block. Intermittent
ectopic beats also seen.
Assessment:
E. coli sepsis
Heart failure with mildly reduced ejection fraction�acute on chronic
Prior CVA
PAF on dabigatran
CKD
Plan:
He is not in any acute distress. I discussed this case with Dr. Crow. Plan is for possible CT scan of the abdomen given E. coli sepsis. Given his GFR and age, will hold off on diuresis as he is in no acute distress and may need a contrast load.
Dr. Mckinney decide this tomorrow along with nephrology consult. No melara for diuresis can trial depending on clinical course. GDMT can be added as tolerable, will avoid Farxiga with acute infection. Can consider Aldactone prior to discharge
depending on where kidney function levels out.
Original Note:
Consultation
Consultation Request
Date/Time Consultation Requested: 11/17/24 2:30p
Date/Time Consultation Performed: 11/17/24 3p
Requesting Provider: Dr. Zimmer
Performing Provider: KURT Rashid for Dr. Cespedes
Reason for Consultation: CHF eval
Medical History
-
Chief Complaint: LLE cellulitis
History of Present Illness:
Mr. Farmer is an 84 yo male with CVA 08/2024 (right frontal lobe s/p TNK), paroxysmal Afib on outpatient monitoring 09/2024 and now on Pradaxa (Plavix stopped), CAD s/p PTCA RCA 05/2017, CM 45%, DM, CKD, h/o DVT, and GERD, GIB 06/2021 and RBBB, who
presents to the ER from home with fevers and LLE cellulitis. He is accompanied by his , who does all the talking about his medical history/care. He was being treated with PO Keflex by PCP. He is admitted to the hospitalist service and we are
consulted for CHF evaluation. CXR with mild pulmonary vascular congestion. He notes SOB/FITCH walking out to his car from his house. He does not weigh himself at home.
outpatient boiler mechanic Dr. Ramirez but is switching to Dr. Cespedes.
Past Medical History
Past Medical History: Other (as above)
Social History
Tobacco: Non-Smoker
Personal:
Living: With Family
Employment: Retired
Family History
Family History: Reviewed & Not Pertinent
Allergies / Home Medications
Allergy/AdvReac Type Severity Reaction Status Date / Time
No Known Allergies Allergy Verified 08/23/24 07:35
�Medication �Instructions �Recorded �Confirmed �Type
pantoprazole 40 mg tablet,delayed 40 mg PO DAILY Gastrointestinal 08/23/24 11/16/24 History
release Issue
tamsulosin 0.4 mg capsule (Flomax) 0.8 mg PO DAILY Urinary Issue 08/23/24 11/16/24 History
carvedilol 3.125 mg tablet 3.125 mg PO BID Heart 08/25/24 11/16/24 Rx
disease/condition #60 tabs
losartan 25 mg tablet 25 mg PO DAILY Heart 08/25/24 11/16/24 Rx
disease/condition #30 tabs
rosuvastatin 20 mg tablet 20 mg PO QPM High cholesterol #30 08/25/24 11/16/24 Rx
tabs
cephalexin 500 mg capsule 500 mg PO BID 11/16/24 11/16/24 History
dabigatran etexilate 150 mg 150 mg PO BID 11/16/24 11/16/24 History
capsule (Pradaxa)
mupirocin 2 % topical ointment 1 applic topical BID left leg wound 11/16/24 11/16/24 History
Review of Systems
-
History Source: Patient
All other systems: Negative unless noted
Physical Exam
Vital Signs
Temp Pulse Resp BP Pulse Ox
98.1 F 66 18 136/67 97
11/17/24 11:01 11/17/24 11:01 11/17/24 11:01 11/17/24 11:01 11/17/24 11:01
Lab Results
11/17/24 05:19
11/17/24 05:19
Nmz-X-Cslwbxslyrj Pept 3720 pg/ml 11/16/24 17:13
Physical Exam
General: Well Developed, Well Nourished and No Apparent Distress
HEENT: Normocephalic, Anicteric and Moist Mucous Membranes
Respiratory: Wheezes (expiratory )
Cardiac: S1/S2, Irregular Rhythm and Peripheral Edema (very mild LLE)
Breast: Deferred by me
GI: Soft and Normal Bowel Sounds
Rectal: Deferred by Provider
Genito-urinary: No Costovertebral Tender
Musculoskeletal: No Clubbing and No Cyanosis
Skin: Dry and Other (mild erythema LLE with scabbed area anterior murphy)
Neuro: AO x 3
Psych: Calm
Impression / Plan
-
HFmrEF - acute on chronic.
- mild congestion on CXR and BNP 3720.
- IV Lasix and monitor.
- echo 08/2024 EF 45%.
CM - unknown type.
- EF 45% on echo 08/2024.
- on coreg, losartan.
- diurese and monitor.
- will consider SGLT2i as an outpatient given current LLE cellulitis.
- HF education.
Afib - rate control on Coreg.
- currently on Pradaxa per boiler mechanic Dr. Ramirez.
- will have case management investigate the cost of Eliquis 2.5mg BID.
CAD - PTCA RCA 2017.
- denies angina.
CVA - August 2024.
- right frontal lobe s/p TNK.
- no recurrent symptoms.
- now on Pradaxa due to Afib.
Data Reviewed
-
EKG: Tracing Personally Visualized and interpreted
Radiology: Report Reviewed by me (CXR: Mild pulmonary vascular congestion.)
Medical Tests (Nuc Med, Echo etc): Report Reviewed by me (08/23/24 echo: EF 45%, mild cLVH, mild AR and TR, PASP 38 mmHg, prior echo 06/2021 EF 60% now 45%. )
Labs: Labs Reviewed by me
Old Records: Reviewed
--- NOTE | 2024-11-17 15:37 | CM ---
SANTANA met with [facility] to complete IA. He reports living with his , Sophia, in a two story home with no entry steps. DME in the home: cane, shower chair, shower grab bars. History of [facility] in the past, also at [facility] previously.
Plan: Follow up for PT/OT evals to determine appropriate level of care needs at time of discharge.
[2024-11-17 15:57] LABS: Glucose - Point of Care 139 mg/dl (70-99)
--- NOTE | 2024-11-17 16:00 | CON.ID ---
Consultation
-
Date/Time Consultation Requested: November 17, 2024 1352
Date/Time Consultation Performed: November 17, 2024 1600
Requesting Provider: Dr. Ellis Crow
Performing Provider: Dr. Letitia Ovalles
Reason for Consultation: Bacteremia
Chief Complaint / Past History
Chief Complaint
Shaking chills
History of Present Illness
History obtained from the patient, his , and daughter at bedside. 84-year-old male with history of diabetes mellitus, CAD status post stent, recent CVA status post TNK, CKD 3 who presented to the hospital on November 16 due to fever chills and
sweats. Patient reports he developed left leg cellulitis and started on cephalexin November 12. He had a wound on his murphy for which he did not know how it got there. The leg erythema improving on cephalexin. He started having poor
appetite on November 15. Yesterday morning during breakfast he suddenly had onset of violent shivering and fever. He presented to the ER with temperature 103.2. Chest x-ray no pneumonia. He was started on cefazolin. The admission blood
culture 1 out of 1 set positive for E. coli. Urine analysis negative. Patient denies abdominal pain, nausea, nor diarrhea. No coughing when he eats. He has chronic cough with mucus production. No headaches. No urine symptoms. No flank pain.
Again the left leg cellulitis is improving. No ill contacts. He and his ate store-bought salad Wednesday evening. His is fine.
Past History
Additional Past Medical History:
Diabetes mellitus type 2
CVA status post TNK
CAD status post PTCA
GI bleed from duodenal ulcer
DVT/PE status post IVC filter
CKD 3
BPH
Allergy History:
No Known Allergies Allergy (Verified 08/23/24 07:35)
Medications Reviewed: Yes
Current Antibiotics:
Cefazolin
Social History
Tobacco: Non-Smoker
Alcohol: None
Drug: None
Personal:
Living: With Family
Family History
Family History: Not Pertinent
Review of Systems
Review of Systems
General: Fever, Chills and Change in Appetite
HEENT: Negative Stiff Neck or Headache
Cardiovascular: Negative Chest Pain or Dyspnea
Respiratory: Cough (chronic); Negative Dyspnea
Gasteroenterology: Negative Nausea, Vomiting or Diarrhea
Genital / Urological: Negative Dysuria or Flank Pain
Endocrine: Weakness
Musculoskeletal: Negative Arthralgias
Neurological: Negative Dizziness
All systems: All other systems were reviewed and were negative
Vital Signs
Temp Pulse Resp BP Pulse Ox
98.4 F 51 17 121/64 95
11/17/24 15:30 11/17/24 15:30 11/17/24 15:30 11/17/24 15:30 11/17/24 15:30
Selected Entries
11/16/24
11:18 11/16/24
18:28
Temp 103.3 F H 102.5 F H
Physical Exam
Physical Exam
Constitutional: No Acute Distress and Comfortable
Head: Other (No frontal or maxillary sinus tenderness)
Eyes: No Conjunctival Hemorrhage and Sclera Anicteric
Cardiovascular: Irregular Rate and S1/S2
Pulmonary: Clear
Gastrointestinal: Soft, Non Tender, Non Distended, Normal Bowel Sounds, No Rebound and No Guarding
Genito-Urinary: Negative CVA Tenderness
Extremities: Erythema (Resolving erythema LLE, no warmth. + scab on murphy ); Negative Edema
Neurological: AO x 3
Lab / Diagnostic Study Results
11/17/24 05:19
11/17/24 05:19
Abs Immat Gran (auto) 0.0 10^3/uL (0-0.05) 11/16/24 11:28
Absolute Neuts (auto) 7.9 10^3/uL (1.4-6.5) H 11/16/24 11:28
Absolute Lymphs (auto) 0.4 10^3/uL (1.2-3.4) L 11/16/24 11:28
Absolute Monos (auto) 0.6 10^3/uL (0.1-0.6) 11/16/24 11:28
Absolute Basos (auto) 0.0 10^3/uL (0-0.2) 11/16/24 11:28
Immature Gran % 0.3 % (0-0.5) 11/16/24 11:28
Neutrophils % 86.4 % (42.2-75.2) H 11/16/24 11:28
Lymphocytes % 4.8 % (20.5-51.1) L 11/16/24 11:28
Monocytes % 6.9 % (1.7-9.3) 11/16/24 11:28
Eosinophils % 1.3 % (0-6) 11/16/24 11:28
Basophils % 0.3 % (0-2) 11/16/24 11:28
Lactic Acid Cancelled 11/16/24 17:14
Ur Squamous Epith Cells 0-2 /LPF (Few) 11/16/24 17:14
Microbiology Results
Micro:
11/16/24 11:28 Blood Culture - Preliminary
Blood/Venous Escherichia coli
Gram Stain - Preliminary
11/16/24 11:28 Influenza Types A & B ([facility]) - Final
Nasal Swab Negative for Influenza A & B, NAAT
Negative results must be combined with clinical observations
and patient history.
Nucleic Acid Amplification test (NAAT)performed on the
[employer] platform.
11/16/24 CXR: 1. Mild cardiomegaly. 2. Mild pulmonary vascular congestion.
Assessment / Plan
# Fever
# E. coli bacteremia (1 of 1 set), unclear source
- UA negative, thus not urine source.
- No GI sxs.
- Recommend CT a/p with po contrast +/-IV contrast to evaluate for occult abd source
- Repeat bcx's x 2.
- DC cefazolin
- Start ceftriaxone
- Trend temps
# LLE cellulitis present on admission
- resolving
# Afib
# Conditions prior to admission
Diabetes mellitus type 2
CVA status post TNK
CAD status post PTCA
GI bleed from duodenal ulcer
DVT/PE status post IVC filter
CKD 3
BPH
Care Review
Plan reviewed with: Physician (Dr. Crow)
[2024-11-17] MEDS: ROCEPHIN 2000 MG IV (17:35)
[2024-11-17] MEDS: CRESTOR 20 MG PO (17:36)
[2024-11-17] MEDS: STERILE WATER FOR INJECTION 20 ML IV (17:36)
[2024-11-17 20:25] LABS: Glucose - Point of Care 135 mg/dl (70-99)
--- NOTE | 2024-11-17 20:30 | PTCARENOTE ---
Pt with HR sustaining in low 40's to low 50's. VS WDL otherwise, asymptomatic. KURT Vasquez aware. Hold parameters added to BP medication.
[2024-11-17] MEDS: COREG PO (21:38)
[2024-11-18 03:24] VITALS: BP 140/75
[2024-11-18 06:38] LABS: Hematocrit 37.7 % (39.0-52.0); Hemoglobin 11.5 g/dL (13.0-18.0); Mean Corp Hgb Conc. 30.5 g/dL (33.0-37.0); Mean Corpuscular Volume 96.7 fL (80.0-94.0); Nucleated Red Blood Cells % 0 % (-); Platelet Count 152 10^3/uL (130-400); Red Cell Dist. Width 13.3 % (11.5-14.5)
[2024-11-18 07:05] LABS: ALT (SGPT) < 10 U/L (0-50); AST (SGOT) 20 U/L (17-59); Albumin 3.6 g/dl (3.5-5.0); Alkaline Phosphatase 54 U/L (38-126); Blood Urea Nitrogen 28 mg/dl (9-20); Calcium 8.5 mg/dl (8.4-10.2); Carbon Dioxide 23 mmol/L (22-30); Chloride 111 mmol/L (98-107); Estimated Creatinine Clearance 42 ml/min; Glucose 105 mg/dl (70-99); Potassium 4.7 mmol/L (3.5-5.1); Sodium 140 mmol/L (135-145); Total Protein 6.8 g/dl (6.3-8.2); eGFR 53.50
[2024-11-18 07:28] LABS: Glucose - Point of Care 103 mg/dl (70-99)
[2024-11-18 08:12] VITALS: BP 125/69
[2024-11-18] MEDS: FLOMAX 0.8 MG PO (09:58)
[2024-11-18] MEDS: PRADAXA 150 MG PO ×2 (09:59→21:39)
[2024-11-18] MEDS: PROTONIX 40 MG PO (09:59)
[2024-11-18] MEDS: COREG 3.125 MG PO ×2 (09:59→21:39)
[2024-11-18] MEDS: NOVOLOG FLEXPEN-LOW RESISTANCE SC ×2 (10:00→17:08)
--- NOTE | 2024-11-18 11:12 | W.PN.HOSP.TC ---
Today's Communication/Plan
-
IV antibiotics. CT scan of abdomen and pelvis
Assessment / Plan
Assessment / Plan
Physical exam:
General: Acutely ill
HEENT: Normocephalic, Atraumatic and Moist Mucous Membranes
Respiratory: Few coarse crackles in the bases; Negative Wheezes or Rhonchi
Cardiac: Regular Rhythm and S1/S2
GI: Soft, Nontender and Nondistended
Musculoskeletal: Left lower extremity with dry scab and mild erythema. No Clubbing, No Cyanosis and No Edema
Neuro: Awake, Alert and Oriented, no neurological deficit
Psych: Calm
A/P:
Sepsis with E. coli bacteremia and cellulitis:
Source of E. coli unclear
On IV ceftriaxone 2 g daily
ID consult-discussed with ID
Plan for CT of the abdomen with contrast but given underlying CKD will involve nephrology for evaluation first--> discussed at length with family including and daughter at bedside and agreeable with plan.
Might do ultrasound of the abdomen in the meantime if available
Nephrology consult-discussed with renal
11/18:
Did ultrasound of the abdomen and unremarkable except for some nonspecific finding
Renal function improved today with creatinine 1.3
I think today it is okay to go ahead and do CT scan of abdomen pelvis with oral and IV contrast but I think he will need IV bicarb infusion for renal protection to avoid contrast-induced nephropathy. Awaiting for nephrology input.
Discussed with over the phone today.
Left lower extremity cellulitis:
Improving
Ceftriaxone will continue to work on cellulitis
Monitor clinically
Acute on chronic systolic congestive heart failure:
He does have some heart failure features with dyspnea, lung crackles on exam and mild increase JVD, CHF on chest x-ray, and increased BNP.
On the other hand, he is not hypoxic and not much dyspnea at rest and underlying CKD so we will request cardiology evaluation and hold off on diuresis
Patient and family are planning to transfer his care to [facility] Dr. Cespedes and she appears to be covering cardiology service.
Cardiology consult
Will follow-up cardiology recommendation
11/18:
Discussed with cardiology last evening and holding on diuretics
Continue to monitor volume status
Will need GDMT down the road
Might also need diuresis down the road but no needed at the moment
CKD stage IIIb:
Avoid nephrotoxic
Planning to use contrast so might benefit from bicarb but given heart failure issues appears to be a challenge. Nephrology consulted.
Monitor renal function
11/18:
He will likely need IV bicarb infusion for renal protection to avoid contrast-induced nephropathy. Discussed with nephrology last evening. Awaiting for nephrology input today.
Paroxysmal atrial fibrillation:
On rate control, Coreg 3.125 mg twice a day
On anticoagulation, Pradaxa 150 mg twice a day
Anemia:
No signs of active bleeding
Continue to monitor hemoglobin closely
Hyperkalemia:
Resolved
Holding ARB
Monitor potassium
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
Status post TNK procedure
On anticoagulation and statins
CAD:
On anticoagulation beta-blockers and statins
History of GI bleed in the past:
On PPI
No evidence of active bleeding
Diabetes mellitus type 2:
Insulin sliding scale
Hemoglobin A1c 6.8
History of DVT PE:
On anticoagulation
Status post IVC filter in the past
History of BPH:
On Flomax 0.8 mg daily
DVT prophylaxis:
On Pradaxa
CODE STATUS:
Full code
Total time spent on today's encounter was 52 minutes which included time spent in counseling the patient/family regarding diagnosis and treatment plan as listed above, goals of care, and symptom management. Case was discussed with nursing staff,
specialists, and care coordinators/case management. All labs and imaging personally reviewed by me. Remainder the time spent in detailed review of previous records, lab data, imaging, and other medical provider documentation.
Anticipated Discharge: > 48 hours
Subjective/Interval History
-
Date of Service: November 18, 2024
Patient denies chest pain or shortness of breath today. Still poor appetite overall. Does not complain much of abdominal pain nausea or vomiting though. He remains afebrile
Objective Data
-
Labs:
Laboratory Results
11/18/24
06:12
WBC 6.4
Hgb 11.5 L
Hct 37.7 L
Plt Count 152
Sodium 140
Potassium 4.7
Chloride 111 H
Carbon Dioxide 23
BUN 28 H
Creatinine 1.3
Glucose 105 H
Calcium 8.5
Total Bilirubin 0.3
AST 20
ALT < 10
Alkaline Phosphatase 54
Vital Signs:
Vital Signs
Temp Pulse Resp BP Pulse Ox
98.0 F 71 15 125/69 93
11/18/24 08:12 11/18/24 09:59 11/18/24 08:12 11/18/24 08:12 11/18/24 08:12
I&O
11/17/24 11/18/24 11/19/24
06:59 06:59 06:59
Intake Total 720 / 720
Output Total 450 / 450 1425 / 1425
Balance -450 / -450 -705 / -705
[2024-11-18 11:22] VITALS: BP 116/63
[2024-11-18 11:45] LABS: Glucose - Point of Care 153 mg/dl (70-99)
--- NOTE | 2024-11-18 12:25 | W.PN.ID1 ---
Date of Service
Date of Service: November 18, 2024
Today's Communication
Await CT a/p.
Continue ceftriaxone.
Assessment / Plan
# Fever - resolved
# E. coli bacteremia (1 of 1 set), unclear source
- UA negative, thus not urine source.
- No GI sxs.
-Abd US: 6mm nodular exhotexture next to GB fossa
- For CT a/p
- Repeat bcx's x 2 pending
- Continue ceftriaxone
# LLE cellulitis present on admission
- resolved
# Afib
# KELSY on CKD - improving
# Conditions prior to admission
Diabetes mellitus type 2
CVA status post TNK
CAD status post PTCA
GI bleed from duodenal ulcer
DVT/PE status post IVC filter
CKD 3
BPH
Chief Complaint
-: Bacteremia
Subjective / Review of Systems
Feeling better. No chills. Voiding well this am at US.
Vital Signs / Physical Exam
Vital Signs
Vital Signs
Temp Pulse Resp BP Pulse Ox
97.7 F 58 16 116/63 97
11/18/24 11:22 11/18/24 11:22 11/18/24 11:22 11/18/24 11:22 11/18/24 11:22
Physical Exam
Constitutional: No Acute Distress and Comfortable
Cardiovascular: Regular Rate and S1/S2
Pulmonary: Clear
Gastrointestinal: Soft, Non Tender, Non Distended and Normal Bowel Sounds
Extremities: Negative Edema or Erythema
Neurological: AO x 3
Objective Data
Lab Data
Lab Results
11/18/24 06:12
11/18/24 06:12
Estimated Creat Clear 42 ml/min 11/18/24 06:12
Lactic Acid Cancelled 11/16/24 17:14
Total Bilirubin 0.3 mg/dl (0.2-1.3) 11/18/24 06:12
AST 20 U/L (17-59) 11/18/24 06:12
ALT < 10 U/L (0-50) 11/18/24 06:12
Alkaline Phosphatase 54 U/L (38-126) 11/18/24 06:12
Most recent labs reviewed.
Micro Results:
11/16/24 11:28 Blood Culture - Preliminary
Blood/Venous Escherichia coli
Gram Stain - Preliminary
11/17/24 18:40 Blood Culture - Pending
Blood/Venous
11/17/24 18:40 Blood Culture - Pending
Blood/Venous
11/16/24 11:28 Influenza Types A & B ([facility]) - Final
Nasal Swab Negative for Influenza A & B, NAAT
Negative results must be combined with clinical observations
and patient history.
Nucleic Acid Amplification test (NAAT)performed on the
[email or web address] platform.
11/16/24 CXR: 1. Mild cardiomegaly. 2. Mild pulmonary vascular congestion.
11/18/24 ABD US: No gallstones. No sonographic evidence of acute cholecystitis. No bile duct dilatation.Moderate hepatic steatosis.
6 mm focus of nodular slightly diminished echotexture adjacent to gallbladder fossa. Possible focal fatty sparing. Cannot exclude small mass. Consider follow-up CT.
--- NOTE | 2024-11-18 12:29 | W.CON.NEPH ---
Addendum entered and electronically signed by Mauricio Mar MD 11/18/24 15:36:
I agree with the resident's note with the following addendum
84-year-old gentleman with CKD 3A baseline creatinine approximately 1.3. He has diabetes mellitus type 2 though not on medication and diet controlled. He has hyperlipidemia on a multidrug regimen also stable. He recently had a course of
cephalexin for left lower leg cellulitis this had been improving when he developed a fever as well as productive cough he also developed shortness of breath on exertion. He came to the emergency room and was noted to be febrile and tachycardic.
His creatinine is 1.5 representing acute kidney injury. Blood cultures have grown E. coli. He had an abdominal ultrasound which showed a nodular echotexture area next to the gallbladder fossa and a CT scan was recommended. Given the E. coli
bacteremia he was planned for CT scan with contrast. We are asked to assist with management of contrast exposure prophylaxis.
Of note, in August of this year he had undergone CTA after a stroke. His creatinine did bump from 1.3 up to 1.7.
Patient is awake alert oriented and in no distress. Mood and affect were pleasant, insight and judgment were good. Pupils are equal round and reactive to light, extraocular movements are intact, sclera were anicteric. Hearing was normal, ears and
nose are intact. Oropharynx was clear. Neck was supple with trachea midline and no thyromegaly. Heart was regular rate and rhythm without rubs. Lower extremities without edema. Lungs were clear to auscultation bilaterally and with normal
excursion. Abdomen was soft, nontender, with normal active bowel sounds, and no hepatosplenomegaly. Skin was without rash and with normal turgor.
Laboratory values including older laboratory values were reviewed.
Abdominal ultrasound 11/18/2024 as listed above
Echocardiogram 08/23/2024 ejection fraction 45% mild TR mild AR
Chest x-ray 11/16/2024 by my reading shows vascular prominence, cardiomegaly
Assessment
KELSY
CKD 3 A
E. coli bacteremia
Left lower leg cellulitis
Paroxysmal atrial fibrillation
Hypertension
Diabetes mellitus type II
History of DVT PE
Plan
Creatinine has returned to baseline though he had developed contrast nephropathy previously.
Given that, I would offer bicarb and IV fluids with his CT scan with IV contrast
Follow BMP daily
He does not appear to be in heart failure and will hold on Lasix.
Original Note:
Consultation
-
Date/Time Consultation Requested: 11/17/2024, 16:46
Date/Time Consultation Performed: 11/18/2024, 12:30
Requesting Provider: Ellis Crow MD
Performing Provider: Mauricio Mar MD
Reason for Consultation: Evaluate kidney function for contrast
Medical History
-
Chief Complaint: fever, left leg cellulitis
History of Present Illness:
84 year old male with history of CVA (), NIDDM, CKD3, BPH, HTN, CAD, hx of subcapsular hematoma of right kidney, DVT, PE, who presented to the ED for fever, fatigue, rigors while being treated with cefalexin for left leg cellulitis. His left
leg infection appeared to be improving when fever started. He did complain of a productive cough. He states that he gets SOB on exertion, especially going up a hill to their driveway.
On arrival to the ED, he was febrile to 103.3, tachycardic, and tachypneic. potassium 5.4, Cr 1.5. CXR showed mild cardiomegaly and mild pulmonary congestion.
He was found to be septic with ecoli bacteremia, and antibiotic therapy was switched from Ancef to ceftriaxone. Abdominal US has shown a 6 mm focus of nodular slightly diminished echotexture adjacent to gallbladder fossa, and a follow up CT with
contrast is recommended. Nephrology has been consulted to evaluate kidney function and risk of contrast-induced nephropathy.
Past Medical History
Past Medical History: Arrhythmias (paroxysmal Afib), CAD, CVA, HTN, Hypercholesterolemia, NIDDM, TN and Other (DVT, PE, hx of subcapsular R kidney hematoma, BPH, CKD3, cardiomyopathy)
Past Surgical History: Other (cataracts)
Family History
Family History: Not Pertinent
Allergies / Home Medications
Allergy/AdvReac Type Severity Reaction Status Date / Time
No Known Allergies Allergy Verified 08/23/24 07:35
�Medication �Instructions �Recorded �Confirmed �Type
pantoprazole 40 mg tablet,delayed 40 mg PO DAILY Gastrointestinal 08/23/24 11/16/24 History
release Issue
tamsulosin 0.4 mg capsule (Flomax) 0.8 mg PO DAILY Urinary Issue 08/23/24 11/16/24 History
carvedilol 3.125 mg tablet 3.125 mg PO BID Heart 08/25/24 11/16/24 Rx
disease/condition #60 tabs
losartan 25 mg tablet 25 mg PO DAILY Heart 08/25/24 11/16/24 Rx
disease/condition #30 tabs
rosuvastatin 20 mg tablet 20 mg PO QPM High cholesterol #30 08/25/24 11/16/24 Rx
tabs
cephalexin 500 mg capsule 500 mg PO BID left leg cellulitis 11/16/24 11/16/24 History
dabigatran etexilate 150 mg 150 mg PO BID Blood Clot 11/16/24 11/16/24 History
capsule (Pradaxa) Prevention/Tx
mupirocin 2 % topical ointment 1 applic topical BID left leg wound 11/16/24 11/16/24 History
Review of Systems
-
History Source: Patient
Constitutional: Other (denies fever/chills)
Respiratory: Other (denies dyspnea)
Cardiac: Other (denies chest pain/palpitations)
Physical Exam
Vital Signs
Vital Signs
Temp Pulse Resp BP Pulse Ox
97.7 F 58 16 116/63 97
11/18/24 11:22 11/18/24 11:22 11/18/24 11:22 11/18/24 11:22 11/18/24 11:22
Lab Results
WBC 6.4 10^3/uL (4.8-10.8) 11/18/24 06:12
RBC 3.90 10^6/uL (4.70-6.10) L 11/18/24 06:12
Hgb 11.5 g/dL (13.0-18.0) L 11/18/24 06:12
Hct 37.7 % (39.0-52.0) L 11/18/24 06:12
Plt Count 152 10^3/uL (130-400) 11/18/24 06:12
Sodium 140 mmol/L (135-145) 11/18/24 06:12
Potassium 4.7 mmol/L (3.5-5.1) 11/18/24 06:12
Chloride 111 mmol/L (98-107) H 11/18/24 06:12
Carbon Dioxide 23 mmol/L (22-30) 11/18/24 06:12
BUN 28 mg/dl (9-20) H 11/18/24 06:12
Creatinine 1.3 mg/dL (0.7-1.3) 11/18/24 06:12
eGFR 53.50 11/18/24 06:12
Glucose 105 mg/dl (70-99) H 11/18/24 06:12
Calcium 8.5 mg/dl (8.4-10.2) 11/18/24 06:12
Mlv-Q-Izvkimfxolk Pept 3720 pg/ml 11/16/24 17:13
Albumin 3.6 g/dl (3.5-5.0) 11/18/24 06:12
Physical Exam
General: Awake, Alert and Oriented
Respiratory: Clear and Nonlabored Respirations; Negative Wheezes, Crackels or Rhonchi
Cardiac: S1/S2, Regular Rate/Rhythm and Other (trace LE edema); Negative Murmur or Rub
Abdomen: Soft, Nontender, Nondistended and Normal Bowel Sounds
Musculoskeletal: No Clubbing, No Cyanosis and Edema (trace, LE)
Skin: Other (small area of redness on anterior left leg, with central wound. No obvious discharge. Non tender, no warmth)
Assessment/Plan
-
IMPRESSION:
Sepsis
Ecoli bacteremia
left leg cellulitis
CKD3
Acute HFmrEF exacerbation
Hyperkalemia
PLAN:
- Hyperkalemia resolved. Continue holding Losartan
- History of KELSY s/p contrast CT. Will start bicarb IVF prophylaxis
- Okay to give IV contrast with CT abdomen given ecoli bacteremia and US abd finding
- Avoid nephrotoxic agents
- Appreciate cardiology holding off on IV diuresis
- Follow BMP
[2024-11-18 12:37] VITALS: PULSE 67
[2024-11-18] MEDS: NOVOLOG FLEXPEN-LOW RESISTANCE 1 UNITS SC (12:53)
[2024-11-18 15:00] VITALS: BP 115/55
--- NOTE | 2024-11-18 16:10 | W.PN.CD ---
Today's Communication / Plan
-
continue acute clinical care of ecoli sepsis
pt with f/u in the office with me
no acute cardiac concern
I will sign off
Impression / Plan
-
E. coli sepsis
-plan for scan
-nephro to prep
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
- echo 08/2024 EF 45%.
- on coreg, losartan.
- no melara to diuresis, can address on clinicial improvement, he has op fu
- will consider SGLT2i as an outpatient given current LLE cellulitis.
- HF education.
Afib - rate control on Coreg.
- currently on Pradaxa, eliquis was cost prohibitive.
-cont ppi given h/o of Gastric ulcer and gib
CAD - PTCA RCA 2017.
- denies angina.
CKD: Acute on chronic
-improved
CVA - August 2024.
- right frontal lobe s/p TNK.
- no recurrent symptoms.
- now on Pradaxa due to Afib.
Physical Exam
Vital Signs/Labs
Vital Signs
Temp Pulse Resp BP Pulse Ox
98.4 F 39 17 115/55 97
11/18/24 15:00 11/18/24 15:00 11/18/24 15:00 11/18/24 15:00 11/18/24 15:00
11/17/24 11/18/24 11/19/24
06:59 06:59 06:59
Actual Weight 201 lb 4.8 oz 201 lb 4.8 oz
11/18/24 06:12
11/18/24 06:12
11/16/24
17:13
Wei-B-Yhndeskrrez Pept 3720
Physical Exam
Constitutional: No acute distress
Cardiovascular: Rhythm & rate is regular, Pedal edema is absent, JVD pressure is normal, Systolic murmur absent and Diastolic murmur absent
Respiratory: Respiratory effort normal, Lungs clear to auscul., Wheeze Absent, Crackles Absent and Rhonchi Absent
Neuro/Psych: AO x 3
Data Reviewed
-
Date of Service: November 18, 2024
Medical Decision Making: Review of Case with other Provider (Dr Crow, no acute chf will follow up as op as scheduled.)
[2024-11-18 16:58] LABS: Glucose - Point of Care 120 mg/dl (70-99)
[2024-11-18] MEDS: OMNIPAQUE 50 ML PO (16:58)
[2024-11-18] MEDS: CRESTOR 20 MG PO (17:42)
[2024-11-18] MEDS: STERILE WATER FOR INJECTION 20 ML IV (17:43)
[2024-11-18] MEDS: ROCEPHIN 2000 MG IV (17:43)
[2024-11-18] MEDS: SODIUM BICARBONATE 1150 MEQ IV (18:15)
[2024-11-18 23:30] VITALS: BP 134/63
[2024-11-19 03:36] VITALS: BP 114/60
[2024-11-19 06:00] VITALS: BMI 29.0
[2024-11-19 06:11] LABS: Hematocrit 33.7 % (39.0-52.0); Hemoglobin 11.3 g/dL (13.0-18.0); Mean Corp Hgb Conc. 33.5 g/dL (33.0-37.0); Mean Corpuscular Volume 91.8 fL (80.0-94.0); Nucleated Red Blood Cells % 0 % (-); Platelet Count 147 10^3/uL (130-400); Red Cell Dist. Width 12.8 % (11.5-14.5)
[2024-11-19 06:39] LABS: Blood Urea Nitrogen 28 mg/dl (9-20); Calcium 7.9 mg/dl (8.4-10.2); Carbon Dioxide 25 mmol/L (22-30); Chloride 105 mmol/L (98-107); Estimated Creatinine Clearance 46 ml/min; Glucose 114 mg/dl (70-99); Potassium 4.5 mmol/L (3.5-5.1); Sodium 136 mmol/L (135-145); eGFR 58.89
[2024-11-19 07:29] LABS: Glucose - Point of Care 124 mg/dl (70-99)
[2024-11-19 08:03] VITALS: BP 121/75
[2024-11-19] MEDS: PRADAXA 150 MG PO (08:12)
[2024-11-19] MEDS: COREG 3.125 MG PO (08:12)
[2024-11-19] MEDS: PROTONIX 40 MG PO (08:12)
[2024-11-19] MEDS: NOVOLOG FLEXPEN-LOW RESISTANCE SC ×2 (08:12→11:43)
[2024-11-19] MEDS: FLOMAX 0.8 MG PO (08:12)
[2024-11-19 11:23] LABS: Glucose - Point of Care 148 mg/dl (70-99)
--- NOTE | 2024-11-19 11:38 | W.PN.ID1 ---
Date of Service
Date of Service: November 19, 2024
Today's Communication
- Can transition ceftriaxone to Augmentin 875 mg po bid through 11/29.
Assessment / Plan
# Fever - resolved
# E. coli bacteremia (1 of 1 set), unclear source
- UA negative, thus not urine source.
- No GI sxs.
-CT a/p with po and IV contrast unremarkable.
- Repeat bcx's x 2 negative.
- Can transition ceftriaxone to Augmentin 875 mg po bid 11/29.
# LLE cellulitis present on admission
- resolving
# Afib
# KELSY on CKD - improving
# Conditions prior to admission
Diabetes mellitus type 2
CVA status post TNK
CAD status post PTCA
GI bleed from duodenal ulcer
DVT/PE status post IVC filter
CKD 3
BPH
Chief Complaint
-: Bacteremia
Subjective / Review of Systems
Feels well.
Vital Signs / Physical Exam
Vital Signs
Vital Signs
Temp Pulse Resp BP Pulse Ox
98 F 68 18 121/75 98
11/19/24 08:03 11/19/24 08:12 11/19/24 08:03 11/19/24 08:12 11/19/24 08:03
Physical Exam
Constitutional: No Acute Distress and Comfortable
Cardiovascular: Regular Rate and S1/S2
Pulmonary: Clear
Gastrointestinal: Soft, Non Tender, Non Distended and Normal Bowel Sounds
Extremities: Negative Edema
Wound: Other (LLE with scab and mild surrounding erythema)
Neurological: AO x 3
Objective Data
Lab Data
Lab Results
11/19/24 05:46
11/19/24 05:46
Estimated Creat Clear 46 ml/min 11/19/24 05:46
Lactic Acid Cancelled 11/16/24 17:14
Total Bilirubin 0.3 mg/dl (0.2-1.3) 11/18/24 06:12
AST 20 U/L (17-59) 11/18/24 06:12
ALT < 10 U/L (0-50) 11/18/24 06:12
Alkaline Phosphatase 54 U/L (38-126) 11/18/24 06:12
Most recent labs reviewed.
Micro Results:
11/16/24 11:28 Blood Culture - Final
Blood/Venous Escherichia coli
Gram Stain - Final
11/17/24 18:40 Blood Culture - Preliminary
Blood/Venous No Growth in 24 hours- Final report to follow
11/17/24 18:40 Blood Culture - Preliminary
Blood/Venous No Growth in 24 hours- Final report to follow
11/16/24 11:28 Influenza Types A & B ([facility]) - Final
Nasal Swab Negative for Influenza A & B, NAAT
Negative results must be combined with clinical observations
and patient history.
Nucleic Acid Amplification test (NAAT)performed on the
[employer] platform.
11/18/24 CT a/p: No significant abnormality identified in the abdomen or pelvis.
11/16/24 CXR: 1. Mild cardiomegaly. 2. Mild pulmonary vascular congestion.
11/18/24 ABD US: No gallstones. No sonographic evidence of acute cholecystitis. No bile duct dilatation.Moderate hepatic steatosis.
6 mm focus of nodular slightly diminished echotexture adjacent to gallbladder fossa. Possible focal fatty sparing. Cannot exclude small mass. Consider follow-up CT.
Care Review
Plan reviewed with: Physician (Dr. Crow)
[2024-11-19 12:27] VITALS: BP 116/62
--- NOTE | 2024-11-19 13:39 | W.PN.NEPH.PH ---
Today's Communication / Plan
-
dc
Assessment/Plan
-
IMPRESSION:
Sepsis
Ecoli bacteremia
left leg cellulitis
CKD3
Acute HFmrEF exacerbation
Hyperkalemia
PLAN:
may restart losartan if desired
abx to po
follow BMP
dc planning
-
-
Date of Service: November 19, 2024
CC / HPI / ROS
-
Chief Complaint:
KELSY
History of Present Illness:
KELSY/Cr down to 1.2
s/p CT with IV contrast 11/18
abx for e coli bacteremia
Review of Systems:
no CP/SOB
Labs
-
Labs:
WBC 6.6 10^3/uL (4.8-10.8) 11/19/24 05:46
RBC 3.67 10^6/uL (4.70-6.10) L 11/19/24 05:46
Hgb 11.3 g/dL (13.0-18.0) L 11/19/24 05:46
Hct 33.7 % (39.0-52.0) L 11/19/24 05:46
Plt Count 147 10^3/uL (130-400) 11/19/24 05:46
Sodium 136 mmol/L (135-145) 11/19/24 05:46
Potassium 4.5 mmol/L (3.5-5.1) 11/19/24 05:46
Chloride 105 mmol/L (98-107) 11/19/24 05:46
Carbon Dioxide 25 mmol/L (22-30) 11/19/24 05:46
BUN 28 mg/dl (9-20) H 11/19/24 05:46
Creatinine 1.2 mg/dL (0.7-1.3) 11/19/24 05:46
eGFR 58.89 11/19/24 05:46
Glucose 114 mg/dl (70-99) H 11/19/24 05:46
Calcium 7.9 mg/dl (8.4-10.2) L 11/19/24 05:46
Iol-Z-Gunjvjshkhr Pept 3720 pg/ml 11/16/24 17:13
Albumin 3.6 g/dl (3.5-5.0) 11/18/24 06:12
Physical Exam
-
Vital Signs:
Vital Signs
Temp Pulse Resp BP Pulse Ox
98 F 61 17 116/62 98
11/19/24 12:27 11/19/24 12:27 11/19/24 12:27 11/19/24 12:27 11/19/24 12:27
Cardiovascular:: Regular rate and rhythm
Respiratory:: Bilateral: Coarse
Lung Excursion:: Normal
Abdomen:: Nontender and Soft
Bowel Sounds:: Normal
Extremity Edema:: None: Bilateral:
--- NOTE | 2024-11-19 14:02 | W.PN.HOSP.TC ---
Today's Communication/Plan
-
Discharge planning today
Assessment / Plan
Assessment / Plan
Physical exam:
General: Acutely ill
HEENT: Normocephalic, Atraumatic and Moist Mucous Membranes
Respiratory: Few coarse crackles in the bases; Negative Wheezes or Rhonchi
Cardiac: Regular Rhythm and S1/S2
GI: Soft, Nontender and Nondistended
Musculoskeletal: Left lower extremity with dry scab and mild erythema significantly improved. No Clubbing, No Cyanosis and No Edema
Neuro: Awake, Alert and Oriented, no neurological deficit
Psych: Calm
A/P:
Sepsis with E. coli bacteremia and cellulitis:
Source of E. coli unclear
On IV ceftriaxone 2 g daily
ID consult-discussed with ID
Plan for CT of the abdomen with contrast but given underlying CKD will involve nephrology for evaluation first--> discussed at length with family including and daughter at bedside and agreeable with plan.
Might do ultrasound of the abdomen in the meantime if available
Nephrology consult-discussed with renal
11/18:
Did ultrasound of the abdomen and unremarkable except for some nonspecific finding
Renal function improved today with creatinine 1.3
I think today it is okay to go ahead and do CT scan of abdomen pelvis with oral and IV contrast but I think he will need IV bicarb infusion for renal protection to avoid contrast-induced nephropathy. Awaiting for nephrology input.
Discussed with over the phone today.
11/19:
CT of the abdomen pelvis no acute abnormalities
Reached out to ID and cleared for discharge today
Discussed with daughter at bedside today
Switch antibiotics to oral Augmentin
Plan to discharge today
Left lower extremity cellulitis:
Improving
Ceftriaxone will continue to work on cellulitis
Monitor clinically
Acute on chronic systolic congestive heart failure:
He does have some heart failure features with dyspnea, lung crackles on exam and mild increase JVD, CHF on chest x-ray, and increased BNP.
On the other hand, he is not hypoxic and not much dyspnea at rest and underlying CKD so we will request cardiology evaluation and hold off on diuresis
Patient and family are planning to transfer his care to [facility] Dr. Cespedes and she appears to be covering cardiology service.
Cardiology consult
Will follow-up cardiology recommendation
11/18:
Discussed with cardiology last evening and holding on diuretics
Continue to monitor volume status
Will need GDMT down the road
Might also need diuresis down the road but no needed at the moment
CKD stage IIIb:
Avoid nephrotoxic
Planning to use contrast so might benefit from bicarb but given heart failure issues appears to be a challenge. Nephrology consulted.
Monitor renal function
11/18:
He will likely need IV bicarb infusion for renal protection to avoid contrast-induced nephropathy. Discussed with nephrology last evening. Awaiting for nephrology input today.
Paroxysmal atrial fibrillation:
On rate control, Coreg 3.125 mg twice a day
On anticoagulation, Pradaxa 150 mg twice a day
Anemia:
No signs of active bleeding
Continue to monitor hemoglobin closely
Hyperkalemia:
Resolved
Holding ARB
Monitor potassium
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
Status post TNK procedure
On anticoagulation and statins
CAD:
On anticoagulation beta-blockers and statins
History of GI bleed in the past:
On PPI
No evidence of active bleeding
Diabetes mellitus type 2:
Insulin sliding scale
Hemoglobin A1c 6.8
History of DVT PE:
On anticoagulation
Status post IVC filter in the past
History of BPH:
On Flomax 0.8 mg daily
DVT prophylaxis:
On Pradaxa
CODE STATUS:
Full code
Anticipated Discharge: Today
Subjective/Interval History
-
Date of Service: November 19, 2024
Feels well overall no fever
Objective Data
-
Labs:
Laboratory Results
11/19/24
05:46
WBC 6.6
Hgb 11.3 L
Hct 33.7 L
Plt Count 147
Sodium 136
Potassium 4.5
Chloride 105
Carbon Dioxide 25
BUN 28 H
Creatinine 1.2
Glucose 114 H
Calcium 7.9 L
Vital Signs:
Vital Signs
Temp Pulse Resp BP Pulse Ox
98 F 61 17 116/62 98
11/19/24 12:27 11/19/24 12:27 11/19/24 12:27 11/19/24 12:27 11/19/24 12:27
I&O
11/18/24 11/19/24 11/20/24
06:59 06:59 06:59
Intake Total 720 / 720 780 / 780
Output Total 1425 / 1425 700 / 700
Balance -705 / -705 80 / 80
--- NOTE | 2024-11-19 14:07 | W.DCSUMMARY ---
Discharge Summary
Discharge Data
Date of Admission: 11/16/24
Date of Discharge: 11/19/24
Total time spent discharging patient (in min): 35
-
Pending Results: No
Hospital Course
Patient 84-year-old with history of hypertension, diabetes mellitus, DVT PE, CKD, came into the hospital with left lower extremity erythema not improving. Patient had received antibiotics as outpatient without improvement. He was admitted to the
hospital started on broad-spectrum IV antibiotics. ID was consulted. Patient grew E. coli in his blood cultures. The source of his E. coli was unclear. Urinalysis and ultrasound of the abdomen and CT of the abdomen pelvis with contrast was
unremarkable for any acute pathology.
Discharge duration: 35 minutes
Discharge Plan
-
Patient Disposition: Home with Home Care
Discharge Diagnosis/Procedures: Sepsis. E. coli bacteremia. Left lower extremity cellulitis. Paroxysmal atrial fibrillation. Chronic systolic congestive heart failure. Acute kidney injury on chronic knee disease.
Diet: Low Cholesterol and Diabetic, Carb Controlled
Activity: As tolerated
Blood Work: Please PCP to order CBC, BMP within 1 week
Referrals:
Mauricio Mar MD [Active, Nephrology] - in one to two months
Angelito Rouse DO [Family Provider, Family Practice] - in less than 1 week
Светлана Cespedes MD [Active, Cardiology] - in two to three weeks
Prescriptions:
New
amoxicillin-pot clavulanate 875-125 mg Tablet
1 tab PO Q12 10 Days Qty: 20 0RF
Continued
tamsulosin [Flomax] 0.4 mg Capsule
0.8 mg PO DAILY
pantoprazole 40 MG tablet,delayed release (DR/EC)
40 mg PO DAILY
rosuvastatin 20 mg Tablet
20 mg PO QPM Qty: 30 0RF
carvedilol 3.125 mg Tablet
3.125 mg PO BID Qty: 60 0RF
losartan 25 mg Tablet
25 mg PO DAILY Qty: 30 0RF
mupirocin 2 % Ointment
1 applic TOPICAL BID
dabigatran etexilate [Pradaxa] 150 mg Capsule
150 mg PO BID
Discontinued
cephalexin 500 mg Capsule
500 mg PO BID
Rx Instructions:
for 10 days starting 11/13/24
Discharge Orders:
Discharge Patient (As Directed); Ordered 11/19/24
Ordered By: Ellis Crow
Discharge Date and Time
Discharge Date/Time: 11/19/24 15:30
Print Language: TRISTANIAN
--- NOTE | 2024-11-19 14:15 | CM ---
Patient seen at bedside
CM consult completed - VN
prefers [facility] - notified liaison of dc today - referral placed in [facility]
IMM explained & signed. In chart
PLAN: Home with [facility]
dtr to transport
[2024-11-19] MEDS: AUGMENTIN 875 MG/125 MG 1 TABLET PO (14:22)
== END 2024-11-19 15:30 | disposition home health service (06) | DRG 871 ==
LOC: 3 WEST ACU 14:35
PROVIDERS: Physician Assistant; ADMITTING PHYSICIAN Internal Medicine; ATTENDING PHYSICIAN Hospitalist; CONSULT PHYSICIAN Internal Medicine Cardiovascular Disease; CONSULT PHYSICIAN Internal Medicine Infectious Disease; CONSULT PHYSICIAN Specialist; EMERGENCY PHYSICIAN Emergency Medicine; FAMILY PHYSICIAN Family Medicine
DX: A41.51 Sepsis due to Escherichia coli [E. coli] (principal); I50.23 Acute on chronic systolic (congestive) heart failure; L03.116 Cellulitis of left lower limb; N17.9 Acute kidney failure, unspecified; I13.0 Hypertensive heart and chronic kidney disease with heart failure and stage 1 through stage 4 chronic kidney disease, or unspecified chronic kidney disease; Z11.52 Encounter for screening for COVID-19; E87.5 Hyperkalemia; N18.31 Chronic kidney disease, stage 3a; Z79.4 Long term (current) use of insulin; E11.22 Type 2 diabetes mellitus with diabetic chronic kidney disease; I48.0 Paroxysmal atrial fibrillation; Z79.899 Other long term (current) drug therapy
CPT/HCPCS: 71046; 74177; 76700; 80048; 80053; 81003; 81015; 82962; 83036; 83605; 83880; 85025; 85027; 87040; 87077; 87154; 87186; 87205; 87502; 87811; 96361; 96374; 97162; 97166; 99285; Q9967

== ENCOUNTER 2025-02-02 09:05 | Emergency (ER) | payer MEDICARE, BC, SELFPAY ==
[2025-02-02] VITALS (7 sets, daily range): BP systolic 123–149; BP diastolic 62–78; BMI 29.4
--- NOTE | 2025-02-02 09:24 | ED.GENMED ---
History of Present Illness
General
Chief Complaint: Breathing Problem
Source: patient
Exam Limitations: none
Time Seen by Provider: 02/02/25 09:11
Nursing documentation reviewed up to this point in time: agreed with
History of Present Illness
History of Present Illness:
84-year-old male past medical history of previous stroke A-fib hyperlipidemia previous heart attack presenting to the emergency department today with concerns of cough congestion starting yesterday. Initially started with cough and does have some
occasional achiness to the anterior chest only with coughing. Denies nausea vomiting or fevers. He claims that his had an upper respiratory syndrome over the past week
Past History
Past History
ED Past Medical History: HTN, ID (4 years ago s/p balloon) and Other (HLD, arthritis, scoliosis, pre-DM)
Patient has exhibited threatening behavior?: No
Social History
Tobacco: Non-smoker
Alcohol: None
Drug: None
Personal:
Living: with family
Employment: Employed
Family History
Family History: Other (FH of leg pain in mother and sister)
Review of Systems
Review of Systems
Allergies reviewed?: Yes
All Other Systems: ROS reviewed and negative except as documented in HPI and ROS
Phy Exam
Physical Exam
Physical Exam:
GENERAL: Alert , in no apparent distress
EYE: pupils equal and reactive
NECK: Supple, no significant adenopathy.
ENT: o/p clr, mmm.
CARDIAC: Regular rate and rhythm .
LUNGS: Diffuse expiratory wheezing
ABDOMEN: Soft, without focal tenderness, no r/g, no cvat
NEUROLOGICAL: Alert and oriented, no focal neuro deficits
SKIN: Warm and dry, skin intact.
MUSCULOSKELETAL: No edema, well perfused.
PSYCH: Normal and appropriate interaction.
Scores
Heart Failure Risk
Heart Failure Risk Score: Not Applicable
Course
Orders/Labs/Results
Orders:
Orders
02/02/25 09:14
EKG [Electrocardiogram (*1)] Urgent
Reason for Study: Shortness of Breath
EKG- Treatment ONCE
CR Chest - 2 Views Urgent
Comment:
Reason For Exam: cough
02/02/25 09:16
COVID-19 Antigen Urgent
Source: Nasal Swab
Complete Blood Count/With Diff Urgent
Comprehensive Metabolic Panel Urgent
NT-proBNP Urgent
Comment: ADD ON
Troponin I Urgent
Influenza A+B Rapid Molecular Urgent
CAROLYN Source: Nasal Swab
Specimen Description:
02/02/25 09:23
Dexamethasone Sod Phosphate [Decadron] 10 mg IV NOW STA
Ipratropium/Albuterol Sulfate [Duoneb] 3 ml INH R NOW ONE
02/02/25 10:06
Add On- LAB Urgent
Tests Added?: BNP
02/02/25 12:55
Electrocardiogram (*1) Urgent
Reason for Study: Chest Pain
EKG- Treatment ONCE
Azithromycin [Zithromax] 500 mg PO NOW STA
Ipratropium/Albuterol Sulfate [Duoneb] 3 ml INH R NOW ONE
02/02/25 13:01
Troponin I Urgent
02/02/25 13:41
EKG [Electrocardiogram (*1)] Urgent
Reason for Study: Shortness of Breath
EKG- Treatment ONCE
Abnormal Lab Results
02/02/25 02/02/25
09:16 13:01
RBC 4.50 L 10^6/uL
(4.70-6.10)
MCHC 31.8 L g/dL
(33.0-37.0)
Absolute Monos (auto) 1.0 H 10^3/uL
(0.1-0.6)
Lymphocytes % 20.1 L %
(20.5-51.1)
Monocytes % 10.0 H %
(1.7-9.3)
Chloride 110 H mmol/L
(98-107)
BUN 24 H mg/dl
(9-20)
Glucose 124 H mg/dl
(70-99)
Troponin I 0.052 H* ng/ml 0.054 H* ng/ml
02/02/25 09:16
02/02/25 09:16
Vital Signs
Initial and Last Documented VS:
Initial Vital Signs
Pulse Ox
92
02/02/25 09:09
Last Documented Vital Signs
Temp Pulse Resp BP Pulse Ox
98.7 F 64 23 132/66 98
02/02/25 09:12 02/02/25 14:00 02/02/25 14:00 02/02/25 14:00 02/02/25 13:15
MDM/Problems Addressed
MDM/Problems Addressed:
84-year-old male presenting to the emergency department today with concerns of cough upper respiratory symptoms shortness of breath starting yesterday. Diffuse expiratory wheezing. Patient was given medication here including DuoNeb and steroid
with improvement of symptoms. Able to ambulate with pulse ox staying above 92%. Patient no distress here wheezing is improving. BNP was elevated however has been elevated in the past. Symptoms seem more consistent with reactive airway rather
than heart failure. He can follow-up for this as an outpatient. His troponins below his baseline that has had in the past. Additionally EKG showing Wenke Bach otherwise can follow-up as an outpatient. Return precautions given.
*Pulse Oximetry
SaO2: 92
Nasal Cannula flow liters per minute: 92
Oxygen Mode of Delivery: Room air
Patient hypoxic: no (98)
*Critical Care Note
Total Time (30-74mins, 75-104mins- exclusive of procedures): Not Applicable
ED Attending Note
-
Portions of this chart may have been created with voice recognition software.� Occasional wrong word or��sound alike� substitutions may have occurred due to the inherent limitations of voice recognition software.
Discharge Plan
Departure
Patient Disposition: Home (Routine Discharge)
Date of Disposition: 02/02/25
Time of Disposition: 14:24
Patient with high blood pressure during this ER visit?: No
Condition: Good
Covid-19: Not Applicable
Discharge Problem:
Wheeze
Instructions: Shortness of Breath (Dyspnea) (DC)
Prescriptions:
New
azithromycin 500 mg tablet
500 mg PO DAILY 2 Days Qty: 2 0RF
prednisone 20 mg tablet
40 mg PO DAILY 4 Days Qty: 8 0RF
albuterol sulfate [Ventolin HFA] 90 mcg/actuation HFA aerosol inhaler
2 puff inhalation Q6H PRN (Reason: shortness of breath or wheezing) Qty: 8.5 0RF
No Action
pantoprazole 40 MG tablet,delayed release (DR/EC)
40 mg PO DAILY
rosuvastatin 20 mg Tablet
20 mg PO QPM Qty: 30 0RF
carvedilol 3.125 mg Tablet
3.125 mg PO BID Qty: 60 0RF
dabigatran etexilate [Pradaxa] 150 mg Capsule
150 mg PO BID
amlodipine 2.5 mg Tablet
2.5 mg PO DAILY
tamsulosin 0.4 mg Capsule
0.8 mg PO DAILY
Patient Comments:
spouse & home med list states that pt has been taking daily script sent in in august 2024 for a 90 day supply with no recent fills - MKO 02/02/25
Referrals:
Angelito Rouse DO [Family Provider, Family Practice]
Activity Restrictions/Additional Instructions:
You came to the emergency department today with concerns of upper respiratory symptoms. You are found have a wheeze. Please take the described occasions to help with symptoms. Otherwise follow-up closely with your primary care doctor within 1
week. Return for any worsening, new or concerning symptoms.
Interventions
Interventions:
*General Assessment Last Done: 02/02/25 09:11
*Neglect/Abuse Screening Last Done: 02/02/25 09:11
*ED COVID-19 Vaccine History Last Done: 02/02/25 09:11
*ED Influenza Vaccine History Last Done: 02/02/25 09:11
[facility] Fall Risk Assessment Tool Last Done: 02/02/25 09:13
*Risk Screen - Suicide (C-SSRS) Last Done: 02/02/25 09:11
ED- Cardiac Assessment Last Done: 02/02/25 09:56
ED- Pulmonary Assessment Last Done: 02/02/25 09:12
Discharge Date and Time
Print Language: CZECH
[2025-02-02 09:32] LABS: Hematocrit 41.8 % (39.0-52.0); Hemoglobin 13.3 g/dL (13.0-18.0); Mean Corp Hgb Conc. 31.8 g/dL (33.0-37.0); Mean Corpuscular Volume 92.9 fL (80.0-94.0); Nucleated Red Blood Cells % 0 % (-); Platelet Count 216 10^3/uL (130-400); Red Cell Dist. Width 13.2 % (11.5-14.5)
[2025-02-02] MEDS: DUONEB 3 ML INH ×2 (09:33→13:01)
[2025-02-02] MEDS: DECADRON 10 MG IV (09:33)
[2025-02-02 09:49] LABS: COVID-19 Antigen Negative (Negative)
[2025-02-02 09:58] LABS: Troponin I 0.052 ng/ml
[2025-02-02 10:01] LABS: ALT (SGPT) 15 U/L (0-50); AST (SGOT) 19 U/L (17-59); Albumin 4.3 g/dl (3.5-5.0); Alkaline Phosphatase 77 U/L (38-126); Blood Urea Nitrogen 24 mg/dl (9-20); Calcium 8.8 mg/dl (8.4-10.2); Carbon Dioxide 24 mmol/L (22-30); Chloride 110 mmol/L (98-107); Estimated Creatinine Clearance 46 ml/min; Glucose 124 mg/dl (70-99); Potassium 4.4 mmol/L (3.5-5.1); Sodium 141 mmol/L (135-145); Total Protein 7.5 g/dl (6.3-8.2); eGFR 58.89
[2025-02-02] MEDS: ZITHROMAX 500 MG PO (13:01)
[2025-02-02 13:37] LABS: Troponin I 0.054 ng/ml
== END 2025-02-02 14:42 | disposition home or self-care (01) ==
LOC: EMR 09:05
PROVIDERS: Physician Assistant; EMERGENCY PHYSICIAN Student in an Organized Health Care Education/Training Program; FAMILY PHYSICIAN Family Medicine
DX: R06.2 Wheezing (principal); I48.91 Unspecified atrial fibrillation; I10 Essential (primary) hypertension; E78.5 Hyperlipidemia, unspecified; I25.2 Old myocardial infarction; M19.90 Unspecified osteoarthritis, unspecified site; M41.9 Scoliosis, unspecified; Z86.73 Personal history of transient ischemic attack (TIA), and cerebral infarction without residual deficits
CPT/HCPCS: 99284; 96374; 94640; 71046; 80053; 83880; 84484; 85025; 87502; 87811; 93005